=== PATIENT | female | born 1985 | race Caucasian/White ===

== ENCOUNTER 2017-05-19 07:59 | Outpatient (CLI) | payer MEDICAID ==
[2017-05-19 13:10] LABS: BASOPHILS # (AUTO) 0.1 10^3/uL (0.0-0.1); BASOPHILS % (AUTO) 0.8 %; EOSINOPHILS # (AUTO) 0.2 10^3/uL (0.0-0.7); EOSINOPHILS % (AUTO) 3.4 %; HCT - HEMATOCRIT 41.4 % (37.0-47.0); HGB - HEMOGLOBIN 13.6 g/dL (12.0-16.0); LYMPHOCYTES % (AUTO) 43.2 %; MEAN CORPUSCULAR HEMOGLOBIN 29.6 pg (27.0-31.0); MEAN CORPUSCULAR HGB CONC 32.9 g/dL (32.0-36.0); MEAN CORPUSCULAR VOLUME 89.9 fL (81.0-99.0); MEAN PLATELET VOLUME 8.1 fL (7.9-10.8); MONOCYTES # (AUTO) 0.6 10^3/uL (0.0-1.0); MONOCYTES % (AUTO) 8.9 %; NEUTROPHILS % (AUTO) 43.7 %; NUCLEATED RED BLOOD CELLS AUTO 0.1 /100WBC; RED BLOOD COUNT 4.61 10^6/uL (4.20-5.40); RED CELL DISTRIBUTION WIDTH 12.4 % (12.0-15.0); UNCORRECTED WHITE BLOOD COUNT 6.9 x10^3/uL; WHITE BLOOD COUNT 6.9 x10^3/uL (4.8-10.8)
[2017-05-19 13:29] LABS: HEMOGLOBIN A1C 0.45 g/dL
[2017-05-19 13:42] LABS: ALBUMIN/GLOBULIN RATIO 1.3 (1.0-2.2); BILIRUBIN,TOTAL 0.3 mg/dL (0.2-1.0); BUN - BLOOD UREA NITROGEN 15 mg/dL (6-20); CALCIUM 9.1 mg/dL (8.5-10.3); CARBON DIOXIDE - CO2 24 mmol/L (21-32); CHLORIDE 109 mmol/L (101-111); CHOL/HDL RATIO 5.5 (<4.4); CHOLESTEROL 224 mg/dL; CREATININE 0.9 mg/dL (0.4-1.0); GFR - MDRD 74 (>89); GLUCOSE 74 mg/dL (70-100); HDL CHOLESTEROL 41 mg/dL; LDL/HDL RATIO 3.3 (<4.4); POTASSIUM 3.5 mmol/L (3.5-5.0); SODIUM 139 mmol/L (135-145); TOTAL PROTEIN 6.7 g/dL (6.7-8.2); TRIGLYCERIDES 237 mg/dL; VLDL CHOLESTEROL 47 mg/dL
== END 2017-05-19 08:00 | disposition home or self-care (01) ==
LOC: LAB.WCP 07:59
PROVIDERS: ATTEND Family Medicine
DX: Z00.00 Encounter for general adult medical examination without abnormal findings (principal)
CPT/HCPCS: 36415; 80053; 80061; 83036; 84443; 85025

== ENCOUNTER 2017-05-20 10:49 | Emergency (ER) | payer MEDICAID ==
[2017-05-20 10:56] VITALS: BP 120/73
[2017-05-20] MEDS ORDERED: IBUPROFEN 800 MG TABLET PO STA (11:16)
--- NOTE | 2017-05-20 11:17 | ED Physician Documentation ---
PD HPI LOWER EXT INJURY - Stated complaint Stated Complaint: RT KNEE PX - Chief complaint Chief Complaint: Ext Problem - History obtained from History obtained from: Patient - History of Present Illness PD HPI LOW EXT INJURY LOCATION: Right, Knee Type of injury: Twist Where injury occurred: Home Timing - onset: Last night Timing - details: Still present Worsened by: Moving, Palpating, Other (weightbearing) - Additional information Additional information: The patient is a 32-year-old female who presents with pain in her right knee. 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 Review of Systems Constitutional: denies: Fever Nose: denies: Congestion Respiratory: denies: Dyspnea GI: denies: Nausea, Vomiting Skin: denies: Rash Musculoskeletal: reports: Joint pain (right knee). denies: Back pain Neurologic: denies: Focal weakness, Numbness, Headache PD PAST MEDICAL HISTORY - Past Medical History Cardiovascular: None Respiratory: None Neuro: None, Other Endocrine/Autoimmune: None : Chronic bladder infection Musculoskeletal: Fibromyalgia, Chronic back pain, Other (Right PCL rupture) - Past Surgical History Past Surgical History: Yes HEENT: Tonsil/Adenoidectomy - Present Medications Home Medications: Ambulatory Orders Medication Instructions Recorded Confirmed Cyclobenzaprine [Flexeril] 20 mg PO HS 06/07/13 10/28/15 Gabapentin 600 mg PO TID 06/07/13 10/28/15 Ropinirole HCl [Requip] 1 tab PO QPM 12/31/14 10/28/15 traMADol [Ultram] 1 tab QID PRN 12/31/14 10/28/15 Hydrocodone/Acetaminophen 1 - 2 each PO Q6H PRN #20 tablet 10/28/15 [Hydrocodon-Acetaminophen 5-325] diazePAM [Valium] 5 - 10 mg PO TID PRN #15 tablet 10/28/15 HYDROcod/ACETAM 5/325 [[place] 5/325] 1 - 2 ea PO Q6H PRN #15 tablet 05/20/17 - Allergies Allergies/Adverse Reactions: Allergies Allergy/AdvReac Type Severity Reaction Status Date / Time neomycin AdvReac Unknown Rash Verified 05/20/17 10:56 Penicillins AdvReac Unknown Rash Verified 05/20/17 10:56 - Social History Does the pt smoke?: No Smoking Status: Never smoker Does the pt drink ETOH?: Yes Does the pt have substance abuse?: No - Immunizations Immunizations are current?: Yes - POLST Patient has POLST: No PD ED PE NORMAL - Vitals Vital signs reviewed: Yes (normal) - General General: Alert and oriented X 3, Other (overweight) - HEENT HEENT: Atraumatic - Neck Neck: No bony TTP - Respiratory Respiratory: No respiratory distress - Back Back: No spinal TTP - Derm Derm: No rash - Extremities Extremities: No edema, No calf tenderness / cord, Other (There is tenderness to palpation over the lateral and popliteal aspect of the right knee. There is no tenderness along the medial joint line, and no instability detected. She is able to fully extend the knee and can flex it to 90, although flexion exacerbates her discomfort. There is a small superficial abrasion noted over the and anterolateral aspect of the tibial plateau region of the knee. Distal neurovascular is intact.) - Neuro Neuro: Alert and oriented X 3, No motor deficit, No sensory deficit Results - Vitals Vitals: Vital Signs - 24 hr 05/20/17 10:53 Temperature 36.8 C Heart Rate 73 Respiratory 18 Rate Blood Pressure 120/73 O2 Saturation 100 Oxygen O2 Source Room air - Rads (name of study) right knee Radiology: Prelim report reviewed, EMP read contemporaneously, See rad report ( No acute osseous abnormality. Mild degenerative change.) Procedures - Splint (location) Lower extremity right Splint applied by: Tech Type of splint: Other (knee immobilizer) Other: Patient tolerated well, No complications, Neurovascular intact PD MEDICAL DECISION MAKING - ED course Complexity details: reviewed results, re-evaluated patient, considered differential, d/w patient, d/w family ED course: The patient's presentation is most consistent with strain of the right knee. X- ray reveals no acute bony abnormality. Treatment in the emergency department included administration of ibuprofen 800 mg orally, and application of knee immobilizer. She is being discharged with prescription for Vicodin, 15 tablets. I discussed with her and her the results of the x-ray, symptomatic treatment and outpatient follow-up, as well as potentially worrisome signs or symptoms that should prompt reevaluation in the emergency department. Departure - Departure Disposition: 01 Home, Self Care Clinical Impression: Knee strain Qualifiers: Encounter type: initial encounter Laterality: right Qualified Code(s): S86.911A - Strain of unspecified muscle(s) and tendon(s) at lower leg level, right leg, initial encounter Condition: Stable Instructions: ED Sprain Knee Follow-Up: Flakita Jiang MD [Provider Admit Priv/Credential] - Prescriptions: HYDROcod/ACETAM 5/325 [[place] 5/325] 1 - 2 ea PO Q6H PRN #15 tablet PRN Reason: Pain Comments: Apply ice pack to her right knee intermittently for the next 3 or 4 days. You can use ibuprofen, up to 800 mg 3 times daily for its anti-inflammatory effect. You can use Vicodin as prescribed if needed for pain. Use the knee immobilizer if it provides comfort. Follow-up with your orthopedic doctor within 2 weeks. Call to schedule appointment. Let pain be your guide to activity level. Return to the emergency department if you develop increasing pain or swelling of your knee, or otherwise worsening symptoms. Discharge Date/Time: 05/20/17 13:45
[2017-05-20] MEDS ORDERED: IBUPROFEN 800 MG TABLET PO ONE (11:24)
--- NOTE | 2017-05-20 13:06 | XRAY Preliminary Report ---
Exam: XR KNEE 4 VIEW RT IMPRESSION: No acute osseous abnormality. Mild degenerative change. [facility] SITE ID: [id number]
--- NOTE | 2017-05-20 13:08 | XRAY Report ---
EXAM: RIGHT KNEE RADIOGRAPHY EXAM DATE: 05/20/2017 11:48 AM. CLINICAL HISTORY: Right knee injury. Pain. COMPARISON: 06/13/2012. TECHNIQUE: 5 views. FINDINGS: Bones: Normal. No fractures or bone lesions. Joints: Mild tricompartmental osteophytes. No subluxation or effusion. Soft Tissues: No focal abnormality. IMPRESSION: No acute osseous abnormality. Mild degenerative change. [facility] Referring Provider Line: [phone] SITE ID: [id number]
== END 2017-05-20 13:45 | disposition home or self-care (01) ==
LOC: ED 10:49
DX: S86.811A Strain of other muscle(s) and tendon(s) at lower leg level, right leg, initial encounter (principal); X50.0XXA Overexertion from strenuous movement or load, initial encounter; Y92.018 Other place in single-family (private) house as the place of occurrence of the external cause; M79.7 Fibromyalgia
CPT/HCPCS: 73564; 99283; A9270

== ENCOUNTER 2017-06-09 08:58 | Outpatient (CLI) | payer MEDICAID ==
--- NOTE | 2017-06-09 14:13 | MRI Report ---
EXAM: RIGHT KNEE MRI WITHOUT CONTRAST EXAM DATE: 06/09/2017 10:35 AM. CLINICAL HISTORY: Enrique coyle. Fell 7 weeks ago with posterior knee pain. COMPARISON: Radiographs 05/20/2017. TECHNIQUE: Multiplanar, multisequence T1-weighted and fluid-sensitive sequences of the knee without c ontrast. Other: None. FINDINGS: Cruciate Ligaments: The anterior and posterior cruciate ligaments appear intact. Medial Meniscus: Intact. No tear is identified. Lateral Meniscus: Intact. No tear is identified. Collateral Ligaments: The medial and fibular collateral ligaments appear intact. Bones and Articular Surfaces: Small focal area of cartilage thinning and fissuring at the weightbeari ng medial femoral condyle with prominent associated focal marrow edema. Mild cartilage thinning and f issuring over the lower aspect of the lateral facet of the patella with small foci of subchondral timo ma. Extensor Mechanism: The patellar tendon and quadriceps insertion appear intact. IMPRESSION: 1. Mild medial and patellofemoral compartment osteoarthritis. 2. Focal area of cartilage thinning and fissuring with prominent subchondral marrow edema at the weig htbearing medial femoral condyle. [facility] MUSCULOSKELETAL RADIOLOGY SECTION Referring Provider Line: [phone] SITE ID: [id number]
== END 2017-06-09 08:59 | disposition home or self-care (01) ==
LOC: DI 08:58
PROVIDERS: ATTEND Orthopaedic Surgery
DX: M23.91 Unspecified internal derangement of right knee (principal); M17.11 Unilateral primary osteoarthritis, right knee

== ENCOUNTER 2017-07-06 14:12 | Outpatient (CLI) | payer MEDICAID ==
--- NOTE | 2017-07-07 09:26 | Mammography Report ---
DIGITAL DIAGNOSTIC BILATERAL MAMMOGRAM: 07/06/2017 CLINICAL INDICATION: Focal tenderness left inner breast. TECHNIQUE: Bilateral CC, MLO, laterally exaggerated CC views, left true lateral view. FINDINGS: Markers were placed at the site of maximal tenderness identified by the patient in the lef t breast. This is the patient's baseline examination. The breasts demonstrate fatty replacement bilaterally. A few punctate and coarse, typically benign c alcifications are present. No suspicious masses, clustered microcalcifications, or regions of gaby ectural distortion are identified. Specifically, no mammographic abnormality is appreciated at the s ite of tenderness indicated by the markers in the left breast. IMPRESSION: BENIGN FINDINGS. RECOMMENDATION: Routine annual screening, to commence at age 40, unless otherwise clinically indicat ed. BI-RADS category 2, benign findings. STANDARD QUALIFYING STATEMENTS 1. This examination was reviewed with the aid of Computer-Aided Detection (CAD). 2. A negative or benign imaging report should not delay biopsy if clinically suspicious findings are present. Consider surgical consultation if warranted. More than 5% of cancers are not identified by i maging. 3. Dense breasts may obscure an underlying neoplasm. JOB #: [id number] EXT JOB #:
== END 2017-07-06 14:13 | disposition home or self-care (01) ==
LOC: DI 14:12
PROVIDERS: ATTEND Family Medicine
DX: N64.4 Mastodynia (principal); N63 Unspecified lump in breast
CPT/HCPCS: 77066

== ENCOUNTER 2017-09-19 15:26 | Emergency (ER) | payer MEDICAID ==
[2017-09-19] MEDS ORDERED: SODIUM CHLORIDE 0.9% 1,000 ML IV ONE (16:19)
[2017-09-19] MEDS ORDERED: MORPHINE 10 MG/ML VIAL IVP STA (16:19)
[2017-09-19] MEDS ORDERED: ONDANSETRON 4 MG/2 ML VIAL IVP STA (16:19)
--- NOTE | 2017-09-19 16:21 | ED Physician Documentation ---
History of Present Illness - Stated complaint Stated Complaint: STIFF NECK,HEADACHE,COUGH - Chief complaint Chief Complaint: General - History obtained from History obtained from: Patient - History of Present Illness Timing: Other (32-year-old woman with chronic well-controlled migraines and fibromyalgia presents with 4 days of headache, vomiting, neck stiffness, subjective fevers, body aches, cough. Seen by her physician today and sent here for potential spinal tap given the concern for meningitis. Had a strep test in the office that was negative.) Review of Systems Ten Systems: 10 systems reviewed and negative Constitutional: reports: Fever, Chills, Myalgias, Fatigue Nose: reports: Rhinorrhea / runny nose, Congestion Throat: reports: Sore throat Respiratory: reports: Cough GI: reports: Vomiting, Diarrhea. denies: Abdominal Pain PD PAST MEDICAL HISTORY - Past Medical History Cardiovascular: None Respiratory: None Neuro: None, Other Endocrine/Autoimmune: None : Chronic bladder infection Musculoskeletal: Fibromyalgia, Chronic back pain, Other - Past Surgical History Past Surgical History: Yes HEENT: Tonsil/Adenoidectomy - Present Medications Home Medications: Ambulatory Orders Medication Instructions Recorded Confirmed Cyclobenzaprine [Flexeril] 20 mg PO HS 06/07/13 09/19/17 Gabapentin 600 mg PO TID 06/07/13 09/19/17 Ropinirole HCl [Requip] 1 tab PO QPM 12/31/14 09/19/17 traMADol [Ultram] 1 tab QID PRN 12/31/14 09/19/17 Atorvastatin Calcium 40 mg PO DAILY 09/19/17 09/19/17 HYDROcod/ACETAM 5/325 [[place] 5/325] 1 - 2 ea PO Q6H PRN #15 tablet 09/19/17 Nadolol 20 mg PO DAILY 09/19/17 09/19/17 Ondansetron HCl [Zofran] 4 mg PO Q6H PRN #10 tablet 09/19/17 Topiramate [Topamax] 10 mg PO DAILY 09/19/17 09/19/17 guaiFENesin/CODEINE [Robitussin AC] 5 - 10 ml PO Q6H PRN #120 ml 09/19/17 - Allergies Allergies/Adverse Reactions: Allergies Allergy/AdvReac Type Severity Reaction Status Date / Time neomycin AdvReac Unknown Rash Verified 05/20/17 10:56 Penicillins AdvReac Unknown Rash Verified 05/20/17 10:56 - Social History Does the pt smoke?: No Smoking Status: Never smoker Does the pt drink ETOH?: Yes Does the pt have substance abuse?: No - Immunizations Immunizations are current?: Yes - POLST Patient has POLST: No PD ED PE NORMAL - Vitals Vital signs reviewed: Yes - General General: Alert and oriented X 3, No acute distress - HEENT HEENT: PERRL, EOMI, Pharynx benign - Neck Neck: Other (Neck is stiff, nontender, no adenopathy) - Cardiac Cardiac: RRR, No murmur - Respiratory Respiratory: No respiratory distress, Clear bilaterally - Abdomen Abdomen: Soft, Non tender, Non distended - Back Back: No CVA TTP, No spinal TTP - Derm Derm: Normal color, Warm and dry, No rash - Neuro Neuro: Alert and oriented X 3, Normal speech - Psych Psych: Normal mood, Normal affect Results - Vitals Vitals: Vital Signs - 24 hr 09/19/17 09/19/17 09/19/17 15:30 16:32 17:54 Temperature 36.9 C 37.0 C 36.8 C Heart Rate 77 96 65 Respiratory 18 16 16 Rate Blood Pressure 138/88 H 128/78 114/64 O2 Saturation 99 98 98 Oxygen O2 Source Room air - Labs Labs: Laboratory Tests 09/19/17 09/19/17 09/19/17 15:20 16:23 16:34 WBC 7.8 RBC 4.76 Hgb 13.8 Hct 42.2 MCV 88.7 MCH 29.0 MCHC 32.7 RDW 12.3 Plt Count 328 MPV 7.2 L Neut # 4.7 Lymph # 2.0 Carver # 0.6 Eos # 0.4 Baso # 0.1 Absolute Nucleated RBC 0.00 Nucleated RBC % 0.1 Sodium Potassium Chloride Carbon Dioxide Anion Gap BUN Creatinine Estimated GFR (MDRD) Glucose Lactic Acid Calcium Total Bilirubin AST ALT Alkaline Phosphatase Total Protein Albumin Globulin Albumin/Globulin Ratio Lipase Urine Color YELLOW Urine Clarity CLEAR Urine pH 6.0 Ur Specific [place] 1.025 Urine Protein NEGATIVE Urine Glucose (UA) NEGATIVE Urine Ketones NEGATIVE Urine Occult Blood NEGATIVE Urine Nitrite NEGATIVE Urine Bilirubin NEGATIVE Urine Urobilinogen 0.2 (NORMAL) Ur Leukocyte Esterase NEGATIVE Ur Microscopic Review NOT INDICATED Urine Culture Comments NOT INDICATED Urine HCG, Qual NEGATIVE CSF Color CSF Clarity Xanthrochromic CSF WBC CSF RBC CSF Cell Count Tube # CSF Glucose CSF Total Protein Influenza A (Rapid) Negative Influenza B (Rapid) Negative Influenza Types A,B Ag - 09/19/17 09/19/17 09/19/17 16:34 16:34 17:35 WBC RBC Hgb Hct MCV MCH MCHC RDW Plt Count MPV Neut # Lymph # [place] # Eos # Baso # Absolute Nucleated RBC Nucleated RBC % Sodium 141 Potassium 3.9 Chloride 106 Carbon Dioxide 26 Anion Gap 9.0 BUN 11 Creatinine 0.9 Estimated GFR (MDRD) 74 L Glucose 97 Lactic Acid 0.8 Calcium 9.4 Total Bilirubin 0.5 AST 18 ALT 24 Alkaline Phosphatase 72 Total Protein 7.3 Albumin 3.6 Globulin 3.7 Albumin/Globulin Ratio 1.0 Lipase 22 Urine Color Urine Clarity Urine pH Ur Specific [place] Urine Protein Urine Glucose (UA) Urine Ketones Urine Occult Blood Urine Nitrite Urine Bilirubin Urine Urobilinogen Ur Leukocyte Esterase Ur Microscopic Review Urine Culture Comments Urine HCG, Qual CSF Color COLORLESS CSF Clarity CLEAR Xanthrochromic ABSENT CSF WBC 5 CSF RBC 0 CSF Cell Count Tube # CSF TUBE# 3 CSF Glucose 52 CSF Total Protein 33 Influenza A (Rapid) Influenza B (Rapid) Influenza Types A,B Ag Procedures - Lumbar Puncture Position: Sitting Location: L3-L4, Midline approach Anesthesia: Local lidocaine CSF: Clear Other: Sterile prep and drape, Patient tolerated well PD MEDICAL DECISION MAKING - ED course ED course: 32-year-old woman was referred from the office for what sounds mostly like a viral syndrome with cough cold sore throat etc. but also has prominent headache and stiff neck. As such a lumbar puncture was done and surprisingly technically easy given her size and negative for same. The remainder of her workup was negative, seems consistent with viral syndrome. Departure - Departure Disposition: 01 Home, Self Care Clinical Impression: Viral syndrome Headache Qualifiers: Headache type: unspecified Headache chronicity pattern: acute headache Intractability: not intractable Qualified Code(s): R51 - Headache Condition: Good Record reviewed to determine appropriate education?: Yes Instructions: ED Viral Syndrome Prescriptions: guaiFENesin/CODEINE [Robitussin AC] 5 - 10 ml PO Q6H PRN #120 ml PRN Reason: Cough HYDROcod/ACETAM 5/325 [[place] 5/325] 1 - 2 ea PO Q6H PRN #15 tablet PRN Reason: Pain Ondansetron HCl [Zofran] 4 mg PO Q6H PRN #10 tablet PRN Reason: Nausea / Vomiting Comments: Call your doctor to arrange a follow-up appointment, make the next available appointment. In the interim, return anytime if worse or if new symptoms develop.
[2017-09-19 16:41] LABS: BASOPHILS # (AUTO) 0.1 10^3/uL (0.0-0.1); BASOPHILS % (AUTO) 0.7 %; EOSINOPHILS # (AUTO) 0.4 10^3/uL (0.0-0.7); EOSINOPHILS % (AUTO) 5.6 %; HCT - HEMATOCRIT 42.2 % (37.0-47.0); HGB - HEMOGLOBIN 13.8 g/dL (12.0-16.0); LYMPHOCYTES % (AUTO) 25.2 %; MEAN CORPUSCULAR HGB CONC 32.7 g/dL (32.0-36.0); MEAN CORPUSCULAR VOLUME 88.7 fL (81.0-99.0); MEAN PLATELET VOLUME 7.2 fL (7.9-10.8); MONOCYTES # (AUTO) 0.6 10^3/uL (0.0-1.0); MONOCYTES % (AUTO) 7.9 %; NEUTROPHILS # (AUTO) 4.7 10^3/uL (1.5-6.6); NEUTROPHILS % (AUTO) 60.6 %; NUCLEATED RED BLOOD CELLS AUTO 0.1 /100WBC; RED BLOOD COUNT 4.76 10^6/uL (4.20-5.40); RED CELL DISTRIBUTION WIDTH 12.3 % (12.0-15.0); UNCORRECTED WHITE BLOOD COUNT 7.8 x10^3/uL; WHITE BLOOD COUNT 7.8 x10^3/uL (4.8-10.8)
[2017-09-19 16:53] LABS: BILIRUBIN,TOTAL 0.5 mg/dL (0.2-1.0); CALCIUM 9.4 mg/dL (8.5-10.3); CREATININE 0.9 mg/dL (0.4-1.0); POTASSIUM 3.9 mmol/L (3.5-5.0); TOTAL PROTEIN 7.3 g/dL (6.7-8.2)
[2017-09-19] MEDS ORDERED: ONDANSETRON 4 MG/2 ML VIAL ONE (16:58)
[2017-09-19] MEDS ORDERED: MORPHINE 10 MG/ML VIAL ONE (16:58)
[2017-09-19] MEDS ORDERED: LIDOCAINE 1% 2 ML VIAL ONE (17:18)
[2017-09-19 17:39] LABS: BILIRUBIN,URINE NEGATIVE (NEGATIVE)
[2017-09-19 17:54] VITALS: BP 114/64
[2017-09-19 18:16] LABS: HCG UR QUAL NEGATIVE; UA CHARGE (STRIP ONLY) YES; UR CULTURE IF IND NOT INDICATED
[2017-09-19 18:19] LABS: CLARITY,CSF CLEAR (CLEAR); COLOR,CSF COLORLESS (COLORLESS); CSF XANTHOCHROMIA ABSENT (ABSENT); WHITE BLOOD CELL,CSF 5 /mm^3 (0-5)
[2017-09-19 18:20] LABS: CSF - GLUCOSE 52 mg/dL (45-70)
[2017-09-19 19:17] LABS: LYMPHOCYTES,CSF 40 % (40-80)
--- NOTE | 2017-09-20 18:26 | ED Physician Documentation ---
ED Addendum - Addendum Addendum: 09/20/17 18:23 Took call from lab 1 cx bottle prelim pos for GPC in clusters. Presume contaminant but call to both numbers in chart. She quickly called back. She will come back.
== END 2017-09-19 18:34 | disposition home or self-care (01) ==
LOC: ED 15:26
DX: R51 Headache (principal); M43.6 Torticollis; R05 Cough; J02.9 Acute pharyngitis, unspecified
CPT/HCPCS: 36415; 62270; 80053; 81001; 81003; 81025; 82945; 83605; 83690; 84157; 85025; 87040; 87070; 87086; 87205; 87275; 87276; 89051; 96361; 96374; 96375; 99283

== ENCOUNTER 2017-09-20 19:06 | Observation (INO) | payer MEDICAID ==
[2017-09-20] MEDS ORDERED: VANCOMYCIN INJ 2 GM in SODIUM CHLORIDE 0.9% 500 ML IV STA (19:08)
--- NOTE | 2017-09-20 19:09 | ED Physician Documentation ---
History of Present Illness - Stated complaint Stated Complaint: + BLOOD CULTURE - History obtained from History obtained from: Patient - History of Present Illness Timing: Other (She was seen yesterday for headache, viral symptoms. Meningitis workup was done and negative. She was called back today because of a positive blood culture for gram-positive cocci in clusters. She still has a significant headache and is losing her voice, but no other new symptoms.) Review of Systems Ten Systems: 10 systems reviewed and negative Constitutional: reports: Fever, Chills Nose: reports: Rhinorrhea / runny nose Throat: reports: Sore throat Cardiac: reports: Reviewed and negative Respiratory: reports: Reviewed and negative PD PAST MEDICAL HISTORY - Past Medical History Cardiovascular: None Respiratory: None Neuro: None, Other Endocrine/Autoimmune: None : Chronic bladder infection Musculoskeletal: Fibromyalgia, Chronic back pain, Other - Past Surgical History Past Surgical History: Yes HEENT: Tonsil/Adenoidectomy - Present Medications Home Medications: Ambulatory Orders Medication Instructions Recorded Confirmed Cyclobenzaprine [Flexeril] 20 mg PO HS 06/07/13 09/20/17 Gabapentin 600 mg PO TID 06/07/13 09/20/17 Ropinirole HCl [Requip] 1 tab PO QPM 12/31/14 09/20/17 traMADol [Ultram] 1 tab QID PRN 12/31/14 09/20/17 Atorvastatin Calcium 40 mg PO DAILY 09/19/17 09/20/17 HYDROcod/ACETAM 5/325 [[place] 5/325] 1 - 2 ea PO Q6H PRN #15 tablet 09/19/17 Nadolol 20 mg PO DAILY 09/19/17 09/20/17 Ondansetron HCl [Zofran] 4 mg PO Q6H PRN #10 tablet 09/19/17 09/20/17 Topiramate [Topamax] 10 mg PO DAILY 09/19/17 09/20/17 guaiFENesin/CODEINE [Robitussin AC] 5 - 10 ml PO Q6H PRN #120 ml 09/19/17 - Allergies Allergies/Adverse Reactions: Allergies Allergy/AdvReac Type Severity Reaction Status Date / Time neomycin AdvReac Unknown Rash Verified 09/20/17 19:14 Penicillins AdvReac Unknown Rash Verified 11/29/17 19:14 - Social History Does the pt smoke?: No Smoking Status: Never smoker Does the pt drink ETOH?: Yes Does the pt have substance abuse?: No - Family History Family history: reports: Non contributory - Immunizations Immunizations are current?: Yes - POLST Patient has POLST: No PD ED PE NORMAL - Vitals Vital signs reviewed: Yes - General General: Alert and oriented X 3, No acute distress - HEENT HEENT: Other (hoarse voice) - Neck Neck: Supple, no meningeal sign, No bony TTP - Cardiac Cardiac: RRR, No murmur - Respiratory Respiratory: No respiratory distress, Clear bilaterally - Abdomen Abdomen: Soft, Non tender - Derm Derm: No rash - Neuro Neuro: Alert and oriented X 3, Normal speech - Psych Psych: Normal mood, Normal affect Results - Vitals Vitals: Vital Signs - 24 hr 09/20/17 19:12 Temperature 36.7 C Heart Rate 72 Respiratory 22 Rate Blood Pressure 128/81 H O2 Saturation 99 Oxygen O2 Source Room air PD MEDICAL DECISION MAKING - ED course ED course: 32-year-old woman returns as directed for likely false positive blood culture but cannot rule out true positive gram-positive bacteremia at this point. Spoke with Dr. Castro for admission at 7:30 PM. I had ordered vancomycin, but Dr. Castro would like to follow her clinical course without antibiotics at this juncture. Given the normal vital signs and lack of toxicity this is reasonable. Departure - Departure Disposition: 66 [facility] DC/Xfer Clinical Impression: Gram positive sepsis Condition: Stable
[2017-09-20] MEDS ORDERED: VANCOMYCIN 1 GM VIAL ONE (19:25)
[2017-09-20] MEDS ORDERED: MORPHINE 10 MG/ML VIAL IVP STA (19:40)
[2017-09-20 19:57] LABS: BASOPHILS % (AUTO) 0.5 %; EOSINOPHILS # (AUTO) 0.4 10^3/uL (0.0-0.7); EOSINOPHILS % (AUTO) 4.8 %; HGB - HEMOGLOBIN 13.4 g/dL (12.0-16.0); LYMPHOCYTES # (AUTO) 2.8 10^3/uL (1.5-3.5); MEAN CORPUSCULAR HGB CONC 34.3 g/dL (32.0-36.0); MEAN CORPUSCULAR VOLUME 87.6 fL (81.0-99.0); MEAN PLATELET VOLUME 7.3 fL (7.9-10.8); MONOCYTES # (AUTO) 0.7 10^3/uL (0.0-1.0); MONOCYTES % (AUTO) 8.4 %; NEUTROPHILS # (AUTO) 4.5 10^3/uL (1.5-6.6); NEUTROPHILS % (AUTO) 53.3 %; RED BLOOD COUNT 4.45 10^6/uL (4.20-5.40); UNCORRECTED WHITE BLOOD COUNT 8.5 x10^3/uL; WHITE BLOOD COUNT 8.5 x10^3/uL (4.8-10.8)
[2017-09-20] MEDS ORDERED: MORPHINE 10 MG/ML VIAL ONE (20:03)
[2017-09-20 20:08] LABS: CALCIUM 8.7 mg/dL (8.5-10.3); CREATININE 0.8 mg/dL (0.4-1.0); POTASSIUM 3.6 mmol/L (3.5-5.0)
[2017-09-20] MEDS ORDERED: HYDROcod/ACETAM 5/325 MG TABLET PO PRN (20:24)
[2017-09-20] MEDS ORDERED: SODIUM CHLORIDE FLUSH 0.9% 10 ML SYRINGE IVP PRN (20:24)
[2017-09-20] MEDS ORDERED: ZOLPIDEM 5 MG TABLET PO PRN (20:24)
[2017-09-20] MEDS ORDERED: ONDANSETRON 4 MG/2 ML VIAL IVP PRN (20:24)
[2017-09-20] MEDS ORDERED: traMADol 50 MG TABLET PO PRN (20:27)
[2017-09-20] MEDS ORDERED: IPRATROPIUM/ALBUTEROL 3 ML NEB INH PRN (20:30)
[2017-09-20] MEDS ORDERED: BENZOCAINE/MENTHOL LOZENGE MM PRN (20:31)
[2017-09-20] MEDS: GABAPENTIN 300 MG CAPSULE PO SCH (21:34)
[2017-09-20] MEDS: CYCLOBENZAPRINE 10 MG TABLET PO SCH (21:35)
[2017-09-20] MEDS: SODIUM CHLORIDE FLUSH 0.9% 10 ML SYRINGE IVP SCH ×2 (21:35→22:10)
[2017-09-20] MEDS: KETOROLAC 15 MG/ML VIAL IVP PRN (22:10)
[2017-09-20] MEDS: guaiFENesin 600 MG TABLET PO SCH (22:11)
--- NOTE | 2017-09-20 22:37 | HISTORY & PHYSICAL EXAMINATION ---
DATE OF ADMISSION: 09/20/2017 CHIEF COMPLAINT: Positive blood culture. HISTORY OF PRESENT ILLNESS: The patient is a 32-year-old white female with past medical history of obesity, fibromyalgia, depression, migraine headaches and frequent urinary tract infections. She was seen as outpatient for a 3-4 days' history of headache, cough, and neck stiffness. She did have a throat culture which was negative for strep infection. Her primary care physician was concerned about possible meningitis due to the neck stiffness. Therefore, the patient was sent to the ER on September 19, 2017. At that time, she was evaluated by the ER physician, Dr. Jameson. The patient underwent lumbar puncture which was negative and had no more than 5 white blood cells. Glucose was 50. Protein was 30, which is consistent with a negative LP. Urinalysis was negative. The patient had stable vital signs. No significant laboratory abnormality. Blood cultures were drawn, and the patient was discharged from the ER in stable condition. Subsequently, on September 20, 2017, the ER was notified by the laboratory that 1 out of 2 blood cultures grew gram-positive cocci in clusters. Therefore, the patient was called back to the ER for repeat evaluation. Upon presentation to the ER, the patient was hemodynamically stable. Her maximum temperature was 37.1. Her heart rate was between 60 and 70. Blood pressure was 128/81. Respiration rate was 22. Oxygen saturation 99% on room air. Repeat laboratories showed a normal white blood cell count, normal lactic acid, unremarkable chemistry and hematology panel. When I interviewed the patient, she complained of the same symptoms as she had before, which included nausea, intractable cough without much sputum production, and she reported that her emesis is related to coughing so hard that subsequently she needs to throw up. She also reported ongoing headache but did not complain of stiff neck this time. Her symptoms started about 5 days ago and had been somewhat progressively worse. She had not been treated with antibiotics recently. She denied recent hospitalization. She does not have any recent history of invasive procedure. She denied dental problem or gum disease. She did not report any skin rash, muscle tenderness or joint swelling. PAST MEDICAL HISTORY 1. Obesity/dyslipidemia. 2. Fibromyalgia. 3. Depression. 4. Migraine headaches. 5. Frequent urinary tract infections. 6. Chronic back pain. OUTPATIENT MEDICATIONS: Included 1. Tramadol. 2. Robitussin. 3. Topamax. 4. Requip. 5. Zofran. 6. Nadolol. 7. [place]. 8. Gabapentin. 9. Flexeril. 10. Lipitor. ALLERGIES 1. NEOMYCIN. 2. PENICILLIN. SOCIAL HISTORY: The patient does not smoke. FAMILY HISTORY: Positive for coronary artery disease in the mother. REVIEW OF SYSTEMS: Please see pertinent positive and pertinent negatives listed above at history of present illness. The patient did not report additional complaint on the 12-point review. PRIMARY CARE PHYSICIAN: Amina Puentes MD. PHYSICAL EXAMINATION VITAL SIGNS: Please see listed above at history of present illness. GENERAL: The patient is a well-developed, obese female who is not in distress. CARDIOVASCULAR: S1, S2, regular rate and rhythm. No pathologic murmur. MUSCULOSKELETAL: Obesity, no muscle tenderness or joint swelling. SKIN: No rash. No jaundice. RESPIRATORY: Clear to auscultation without wheezes or crackles. No increased work of breathing. ORAL CAVITY: Unremarkable, dry mucous membranes. No ulcer, no thrush. NEUROLOGIC: Alert, oriented, nonfocal. PSYCHIATRIC: Cooperative. LYMPH: No lymphedema. ASSESSMENT AND PLAN/ACTIVE ISSUES: The patient is a 32-year-old white female. She presents with symptoms consistent with viral syndrome, including cough, headache, nausea and posttussive emesis. She is getting admitted under observation status due to a positive blood culture. Reviewing the patient's laboratories, her white blood cell count is normal and other laboratories are unremarkable, as well. She has stable vital signs, and she is afebrile. Most likely, the positive blood culture is in fact a contaminant. I will observe the patient overnight and closely monitor her vital signs. I decided not to start antibiotics, as antibiotics could mask the clinical symptoms and the clinical course. If this will be the only positive blood culture, then the clinical course will help us decide whether in fact this is a contaminant. Beside monitoring, a new set of blood culture were obtained. While the patient is in the hospital, we will control her symptoms, will use antitussives, and supportive care. I reconciled outpatient medications and will continue unchanged. Deep venous thrombosis prophylaxis. Further plan will depend on the clinical course. Time spent in the care of this patient was 50 minutes. JOB #: [id number] EXT JOB #:[id number] [facility]
[2017-09-21] MEDS: guaiFENesin/CODEINE 5 ML UDC PO PRN ×3 (00:16→20:40)
[2017-09-21] MEDS: GABAPENTIN 300 MG CAPSULE PO SCH ×3 (05:30→21:52)
[2017-09-21] MEDS: KETOROLAC 15 MG/ML VIAL IVP PRN ×2 (05:51→16:09)
[2017-09-21] MEDS: guaiFENesin 600 MG TABLET PO SCH (09:24)
[2017-09-21] MEDS: PANTOPRAZOLE 40 MG TABLET PO SCH (09:24)
[2017-09-21] MEDS: TOPIRAMATE 100 MG TABLET PO SCH (09:25)
[2017-09-21] MEDS: NADOLOL 20 MG TABLET PO SCH (09:25)
[2017-09-21] MEDS: SODIUM CHLORIDE 0.9% 1,000 ML IV SCH ×2 (09:25→18:59)
[2017-09-21] MEDS: POLYETHYLENE GLYCOL 3350 17 GM PACKET PO SCH (09:25)
[2017-09-21] MEDS: ATORVASTATIN 40 MG TABLET PO SCH (09:25)
[2017-09-21] MEDS: ENOXAPARIN 40 MG/0.4 ML SYRINGE SUBQ SCH (09:25)
--- NOTE | 2017-09-21 12:24 | XRAY Report ---
FRONTAL CHEST: 09/21/2017 CLINICAL INDICATION: Cough, shortness of breath. COMPARISON: 08/01/2017 FINDINGS: Frontal view of the chest demonstrates a normal cardiac silhouette. The lungs remain cisco r. No effusion or pneumothorax is present. IMPRESSION: NORMAL CHEST, UNCHANGED. JOB #: [id number] EXT JOB #:[id number]
[2017-09-21] MEDS: SODIUM CHLORIDE FLUSH 0.9% 10 ML SYRINGE IVP SCH ×2 (13:23→21:56)
--- NOTE | 2017-09-21 15:58 | PROVIDER PROGRESS NOTE ---
Subjective - Prog Note Date Prog Note Date: 09/21/17 - Subjective Pt reports feeling: No change Subjective: pt report she still has cough, some headache, and feel sickness. Denies chest pain, shortness of breathing, fever, chill. Current Medications - Current Medications Current Medications: Active Medications Acetaminophen/Hydrocodone Bitart ([place] 5/325) 1 tab PO Q4HR PRN PRN Reason: Pain 5 to 7 Albuterol/Ipratropium (Duoneb) 3 ml INH Q4HR PRN PRN Reason: Wheezing Atorvastatin Calcium (Lipitor) 40 mg PO DAILY [facility] Last Admin: 09/21/17 09:25 Dose: 40 mg Cyclobenzaprine HCl (Flexeril) 20 mg PO HS [facility] Last Admin: 09/20/17 21:35 Dose: 20 mg Enoxaparin Sodium (Lovenox) 40 mg SUBQ DAILY [facility] Last Admin: 09/21/17 09:25 Dose: 40 mg Gabapentin (Neurontin) 600 mg PO TID [facility] Last Admin: 09/21/17 13:32 Dose: 600 mg Guaifenesin (Mucinex) 600 mg PO DAILY [facility] Last Admin: 09/21/17 09:24 Dose: 600 mg Guaifenesin/Codeine Phosphate (Robitussin Ac) 5 - 10 ml PO Q6H PRN PRN Reason: Cough Last Admin: 09/21/17 11:33 Dose: 5 ml Sodium Chloride (Normal Saline 0.9%) 1,000 mls @ 100 mls/hr IV .Q10H [facility] Last Admin: 09/21/17 09:25 Dose: 100 mls/hr Ketorolac Tromethamine (Toradol Inj) 15 mg IVP Q6HR PRN PRN Reason: HEADACHE Stop: 09/25/17 20:59 Last Admin: 09/21/17 05:51 Dose: 15 mg Nadolol (Corgard) 20 mg PO DAILY [facility] Last Admin: 09/21/17 09:25 Dose: 20 mg Ondansetron HCl (Zofran Inj) 4 mg IVP Q6HR PRN PRN Reason: Nausea / Vomiting Pantoprazole Sodium (Protonix) 40 mg PO QDAC [facility] Last Admin: 09/21/17 09:24 Dose: 40 mg Polyethylene Glycol (Miralax) 17 gm PO DAILY [facility] Last Admin: 09/21/17 09:25 Dose: 17 gm Ropinirole HCl (Requip) 0.5 mg PO QPM [facility] Sodium Chloride (Normal Saline Flush 0.9%) 10 ml IVP PRN PRN PRN Reason: NEEDED PER PROVIDER ORDERS Last Admin: 09/21/17 05:55 Dose: 10 ml Sodium Chloride (Normal Saline Flush 0.9%) 10 ml IVP Q8HR [facility] Last Admin: 09/21/17 13:23 Dose: Not Given Throat Lozenges (Cepacol) 1 lozenge MM Q4HR PRN PRN Reason: Cold Symptons Topiramate (Topamax) 100 mg PO DAILY [facility] Last Admin: 09/21/17 09:25 Dose: 100 mg Tramadol HCl (Ultram) 50 mg PO QID PRN PRN Reason: Analgesia Zolpidem Tartrate (Ambien) 5 mg PO QPM PRN PRN Reason: Insomnia Cyclobenzaprine [Flexeril] 10 mg PO Q8H PRN 06/07/13 Gabapentin 600 mg PO TID 06/07/13 Ropinirole HCl [Requip] 0.5 mg PO QPM 12/31/14 traMADol [Ultram] 50 mg PO Q6H PRN 12/31/14 Atorvastatin Calcium 40 mg PO DAILY 09/19/17 Nadolol 20 mg PO QPM 09/19/17 Topiramate [Topamax] 100 mg PO DAILY 09/19/17 Objective - Vital Signs/Intake & Output Reviewed Vital Signs: Yes Vital Signs: Vital Signs x48h Temp Pulse Pulse Resp BP Pulse Ox 09/21/17 15:50 37 C 68 17 125/69 98 09/21/17 14:15 78 16 09/21/17 13:00 36.3 C L 57 L 16 91/48 L 94 09/21/17 08:03 36.5 C 91 14 120/61 93 Intake & Output: Intake & Output 09/18/17 09/19/17 09/20/17 09/21/17 23:59 23:59 23:59 23:59 Intake Total 720 Balance 720 - Objective General Appearance: positive: No acute distress, Alert. negative: Lethargic Eyes Bilateral: positive: Normal inspection, PERRL, No lid inflammation, Conjunctivae nml ENT: positive: ENT inspection nml, Pharynx nml, No signs of dehydration. negative: Purulent nasal drainage, Pharyngeal erythema, Oral lesions, Dry mucous membranes Neck: positive: Nml inspection, Thyroid nml, No JVD, Trachea midline. negative : Thyromegaly, Lymphadenopathy (R), Lymphadenopathy (L), Stiff neck, Kernig's sign, Carotid bruit, Swelling/bruising, Tracheal deviation Respiratory: positive: Chest non-tender, No respiratory distress, Breath sounds nml. negative: Wheezes, Rales, Rhonchi Cardiovascular: positive: Regular rate & rhythm, No murmur, No gallop. negative : Irregularly irregular, Extrasystoles, Tachycardia, Bradycardia, Systolic murmur, Diastolic murmur Peripheral Pulses: 2+ Radial (R), 2+ Radial (L), 2+ Dorsalis pedis (R), 2+ Dorsalis pedis (L) Abdomen: positive: Non-tender, No organomegaly, Nml bowel sounds. negative: Tenderness, Guarding, Rebound Back: positive: Nml inspection. negative: CVA tenderness (R), CVA tenderness (L ) Skin: positive: Color nml, No rash, Warm, Dry. negative: Cyanosis, Diaphoresis , Pallor, Skin rash, Decubitus Extremities: positive: Non-tender, Full ROM, Nml appearance. negative: Calf tenderness, Joint swelling, Milka's sign/cords Neurologic/Psychiatric: positive: Oriented x3, Motor nml, Sensation nml, Mood/ affect nml. negative: Weakness, Sensory loss, Facial droop, Slurred/abnml speech, Depressed mood/affect - Lab Results Fish Bones: 09/20/17 19:49 09/20/17 19:49 Assessment/Plan - Problem List (1) Viral syndrome Impression: pt report cough, headache, nausea. Denies neck stiffness. pt had LP on ER which indicate no meningitis, with hx of migraine headache. pt had one tube of blood culture positive, which it is reason pt was brought to ER and for admission. pt report her headache and cough is better now. the second time two tube blood culture is pending now, will follow up closely to determine if D/C pt pt denies fever, chill, and no fever and chill at hospital, WBC and lactic acid are in the NWL will support and IVF with NS Tylenol, Zofran PRN (2) HTN (hypertension) Impression: stable, continue home Nadolol vital monitor (3) Hyperlipidemia Impression: stable, continue home Statin lab monitor (4) Cough Impression: CXR reviewed, it is unremarkable continue Mucinex, and Guaifenesin and codein (5) Chronic back pain Impression: pt state her pain is better control, continue pain control
[2017-09-21 18:19] LABS: BILIRUBIN,URINE NEGATIVE (NEGATIVE)
[2017-09-21] MEDS: CYCLOBENZAPRINE 10 MG TABLET PO SCH (20:41)
[2017-09-21] MEDS ORDERED: rOPINIRole 0.25 MG TABLET PO SCH (21:00)
[2017-09-22] MEDS: guaiFENesin/CODEINE 5 ML UDC PO PRN ×2 (02:11→08:27)
[2017-09-22 05:37] LABS: BASOPHILS % (AUTO) 0.4 %; EOSINOPHILS # (AUTO) 0.4 10^3/uL (0.0-0.7); EOSINOPHILS % (AUTO) 4.9 %; HCT - HEMATOCRIT 36.7 % (37.0-47.0); HGB - HEMOGLOBIN 12.3 g/dL (12.0-16.0); LYMPHOCYTES # (AUTO) 3.3 10^3/uL (1.5-3.5); LYMPHOCYTES % (AUTO) 43.1 %; MEAN CORPUSCULAR HEMOGLOBIN 29.4 pg (27.0-31.0); MEAN CORPUSCULAR HGB CONC 33.5 g/dL (32.0-36.0); MEAN CORPUSCULAR VOLUME 87.7 fL (81.0-99.0); MEAN PLATELET VOLUME 7.1 fL (7.9-10.8); MONOCYTES # (AUTO) 0.7 10^3/uL (0.0-1.0); MONOCYTES % (AUTO) 9.2 %; NEUTROPHILS # (AUTO) 3.3 10^3/uL (1.5-6.6); NEUTROPHILS % (AUTO) 42.4 %; RED BLOOD COUNT 4.18 10^6/uL (4.20-5.40); RED CELL DISTRIBUTION WIDTH 12.2 % (12.0-15.0); UNCORRECTED WHITE BLOOD COUNT 7.8 x10^3/uL; WHITE BLOOD COUNT 7.8 x10^3/uL (4.8-10.8)
[2017-09-22 05:44] LABS: ALBUMIN/GLOBULIN RATIO 1.2 (1.0-2.2); BILIRUBIN,TOTAL 0.4 mg/dL (0.2-1.0); CALCIUM 8.4 mg/dL (8.5-10.3); CREATININE 0.6 mg/dL (0.4-1.0); POTASSIUM 3.6 mmol/L (3.5-5.0)
[2017-09-22] MEDS: PANTOPRAZOLE 40 MG TABLET PO SCH (06:06)
[2017-09-22] MEDS: SODIUM CHLORIDE FLUSH 0.9% 10 ML SYRINGE IVP SCH ×2 (06:06→08:28)
[2017-09-22] MEDS: GABAPENTIN 300 MG CAPSULE PO SCH (06:06)
[2017-09-22 07:55] VITALS: BP 121/89
[2017-09-22] MEDS: NADOLOL 20 MG TABLET PO SCH (08:28)
[2017-09-22] MEDS: TOPIRAMATE 100 MG TABLET PO SCH (08:28)
[2017-09-22] MEDS: ATORVASTATIN 40 MG TABLET PO SCH (08:28)
[2017-09-22] MEDS: guaiFENesin 600 MG TABLET PO SCH (08:28)
[2017-09-22] MEDS: KETOROLAC 15 MG/ML VIAL IVP PRN (08:28)
[2017-09-22] MEDS: ENOXAPARIN 40 MG/0.4 ML SYRINGE SUBQ SCH (08:35)
[2017-09-22] MEDS: POLYETHYLENE GLYCOL 3350 17 GM PACKET PO SCH (08:35)
--- NOTE | 2017-09-22 08:43 | Discharge Plan ---
Discharge Plan Disposition: 01 Home, Self Care Condition: Stable Diet: Regular Activity Restrictions: Activity as Tolerated Shower Restrictions: No Driving Restrictions: No Weight Bearing: Full Weight Instruction Topics: Headache Migraine Triggers Prevent Additional Instructions or Follow Up instructions: May follow up PCP in one week Follow-Up Care: Dietitian No Smoking: If you smoke, Please STOP! Call for help. Follow-up with: Amina Puentes MD [Primary Care Provider] -
--- NOTE | 2017-09-22 08:49 | DISCHARGE SUMMARY ---
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 Pt is told if positive in final, she will be noted. Pt denies fever, chill, night sweating, WBC in normal arrange (2) HTN (hypertension) stable, continue home regime (3) Hyperlipidemia stable (4) Cough better, continue home regime (5) Chronic back pain stable (6) migraine headache stable. pt has migraine headache as the usual, and refused to have CT of head. - HPI History of Present Illness: please refer from Dr. Castro's HPI on 09/21/17 - HOSPITAL COURSE Hospital Course: pt was admitted for one tube of blood culture positive for bacteremia in the observation unit. Two tube of new blood culture are negative in preliminary culture. Pt did not have fever, chill, night sweating, and WBC in normal arrange. UA and CXR are unremarkable. Pt is educated if positive in final culture, she will be noted. Pt refuse to have CT of brain. She state she always has headache with on and off , she had one CT of brain on last year, it was normal. - ALLERGIES Allergies/Adverse Reactions: Allergies Allergy/AdvReac Type Severity Reaction Status Date / Time neomycin AdvReac Unknown Rash Verified 09/20/17 19:14 Penicillins AdvReac Unknown Rash Verified 09/20/17 19:14 - MEDICATIONS Home Medications: Ambulatory Orders Medication Instructions Recorded Confirmed Cyclobenzaprine [Flexeril] 10 mg PO Q8H PRN 06/07/13 09/21/17 Gabapentin 600 mg PO TID 06/07/13 09/20/17 Ropinirole HCl [Requip] 0.5 mg PO QPM 12/31/14 09/21/17 traMADol [Ultram] 50 mg PO Q6H PRN 12/31/14 09/21/17 Atorvastatin Calcium 40 mg PO DAILY 09/19/17 09/20/17 HYDROcod/ACETAM 5/325 [[place] 5/325] 1 - 2 ea PO Q6H PRN #15 tablet 09/19/17 Nadolol 20 mg PO QPM 09/19/17 09/21/17 Ondansetron HCl [Zofran] 4 mg PO Q6H PRN #10 tablet 09/19/17 09/20/17 Topiramate [Topamax] 100 mg PO DAILY 09/19/17 09/21/17 guaiFENesin/CODEINE [Robitussin AC] 5 - 10 ml PO Q6H PRN #120 ml 09/19/17 - PHYSICAL EXAM AT DISCHARGE General Appearance: positive: No acute distress, Alert. negative: Lethargic Eyes Bilateral: positive: Normal inspection, PERRL, EOMI, No lid inflammation, Conjunctivae nml ENT: positive: ENT inspection nml, Pharynx nml, No signs of dehydration. negative: Purulent nasal drainage, Pharyngeal erythema, Oral lesions Neck: positive: Nml inspection, Thyroid nml, No JVD, Trachea midline. negative : Thyromegaly, Lymphadenopathy (R), Lymphadenopathy (L), Stiff neck, Kernig's sign, Carotid bruit, Swelling/bruising, Tracheal deviation Respiratory: positive: Chest non-tender, No respiratory distress, Breath sounds nml. negative: Wheezes, Rales, Rhonchi Cardiovascular: positive: Regular rate & rhythm, No murmur, No gallop. negative : Irregularly irregular, Extrasystoles, Tachycardia, Bradycardia, Systolic murmur, Diastolic murmur Peripheral Pulses: positive: 2+ Abdomen: positive: Non-tender, No organomegaly, Nml bowel sounds. negative: Tenderness, Guarding, Rebound Back: positive: Nml inspection. negative: CVA tenderness (R), CVA tenderness (L ) Skin: positive: Color nml, No rash, Warm, Dry. negative: Cyanosis, Diaphoresis , Pallor Extremities: positive: Non-tender, Full ROM, Nml appearance. negative: Calf tenderness, Joint swelling, Milka's sign/cords Neurologic/Psychiatric: positive: Oriented x3, Motor nml, Sensation nml, Mood/ affect nml. negative: Sensory loss, Facial droop, Slurred/abnml speech, Depressed mood/affect - LABS Result Diagrams: 09/22/17 05:26 09/22/17 05:26 - FOLLOW UP Follow Up: pt is advised to follow up PCP in one week
[2017-09-22] MEDS ORDERED: DOCUSATE SODIUM 250 MG CAPSULE PO SCH (09:00)
[2017-09-22] MEDS ORDERED: SENNA 8.6 MG TABLET PO SCH (09:00)
== END 2017-09-22 09:43 | disposition home or self-care (01) ==
LOC: ED 19:06 → OBS 20:24
PROVIDERS: ADMIT Internal Medicine; ATTEND Nurse Practitioner Gerontology
DX: B34.9 Viral infection, unspecified (principal); R05 Cough; R78.81 Bacteremia; I10 Essential (primary) hypertension; E78.5 Hyperlipidemia, unspecified; G89.29 Other chronic pain; M54.9 Dorsalgia, unspecified; G43.909 Migraine, unspecified, not intractable, without status migrainosus; E66.9 Obesity, unspecified; Z68.43 Body mass index [BMI] 50.0-59.9, adult; M79.7 Fibromyalgia; F32.9 Major depressive disorder, single episode, unspecified; Z87.440 Personal history of urinary (tract) infections; Z79.899 Other long term (current) drug therapy
CPT/HCPCS: 36415; 71010; 80048; 80053; 81003; 83605; 83735; 85025; 87040; 96361; 96372; 96374; 96375; 96376; 99283; 99284; A9270; G0378; J1650

== ENCOUNTER 2018-06-04 10:18 | Outpatient (CLI) | payer MEDICAID ==
[2018-06-04 14:39] LABS: CHOL/HDL RATIO 3.5 (<4.4); CHOLESTEROL 108 mg/dL; HDL CHOLESTEROL 31 mg/dL; LDL CHOLESTEROL,CALCULATED 59 mg/dL; LDL/HDL RATIO 1.9 (<4.4); VLDL CHOLESTEROL 18 mg/dL
== END 2018-06-04 10:19 | disposition home or self-care (01) ==
LOC: LAB.WCP 10:18
PROVIDERS: ATTEND Family Medicine
DX: Z00.00 Encounter for general adult medical examination without abnormal findings (principal); E78.5 Hyperlipidemia, unspecified
CPT/HCPCS: 36415; 80061; 83721; 84443

== ENCOUNTER 2018-09-12 10:19 | Outpatient (CLI) | payer OTHER ==
--- NOTE | 2018-09-12 11:22 | XRAY Report ---
Reason: BACK PAIN,LUMBAR WITH RADICULOPATHY Procedure Date: 09/12/2018 Accession Number: [id number] / [id number] Procedure: XR - Lumbar Spine 2 View CPT Code: FULL RESULT: EXAM: LUMBOSACRAL SPINE RADIOGRAPHY EXAM DATE: 09/12/2018 10:24 AM. CLINICAL HISTORY: Back pain, lumbar with radiculopathy. COMPARISONS: XR LUMBAR SPINE 2 OR 3 VIEWS 05/03/2011 11:28 AM. TECHNIQUE: 3 views. FINDINGS: Alignment: Interval development of mild levoconvex lumbar scoliosis centered about L2-L3, possibly positional. Bones: Five [id number] lumbar vertebral bodies are present. No fractures or bone lesions. Disks: Normal. Disk heights are maintained. Facets: No degenerative changes. Sacroiliac Joints: Unremarkable. Soft Tissues: Normal. The visualized bowel gas pattern is normal. IMPRESSION: Mild lumbar scoliosis, questionably positional. RADIA
== END 2018-09-12 10:20 | disposition home or self-care (01) ==
LOC: DI 10:19
PROVIDERS: ATTEND Family Medicine
DX: M54.16 Radiculopathy, lumbar region (principal)
CPT/HCPCS: 72100

== ENCOUNTER 2018-11-30 09:31 | Outpatient (CLI) | payer OTHER ==
--- NOTE | 2018-11-30 11:45 | XRAY Report ---
Reason: ANKLE PX,LEFT Procedure Date: 11/30/2018 Accession Number: [id number] / [id number] Procedure: WCP - Ankle 3 View LT CPT Code: FULL RESULT: EXAM: LEFT ANKLE RADIOGRAPHY EXAM DATE: 11/30/2018 09:43 AM. CLINICAL HISTORY: Pain and swelling for a month. No known injury. COMPARISON: XR ANKLE COMPLETE MIN 3 VIEW 04/30/2010 1:06 AM. TECHNIQUE: 3 views. FINDINGS: Bones: Normal. No fractures or bone lesions. Joints: Tiny osteophytes from the tip of the lateral malleolus and anterior tibia. No effusion. No subluxations. The ankle mortise is normally aligned. Soft Tissues: Normal. No soft tissue swelling. IMPRESSION: Minimal osteophyte anterior tibial margin and tip of the lateral malleolus. Otherwise normal ankle radiography. RADIA
== END 2018-11-30 09:32 | disposition home or self-care (01) ==
LOC: DI.WCP 09:31
PROVIDERS: ATTEND Family Medicine
DX: M25.772 Osteophyte, left ankle (principal); M25.572 Pain in left ankle and joints of left foot

== ENCOUNTER 2019-02-02 19:46 | Emergency (ER) | payer OTHER ==
[2019-02-02 19:56] VITALS: BP 145/93
--- NOTE | 2019-02-02 20:47 | XRAY Report ---
Reason: pain in L ankle Procedure Date: 02/02/2019 Accession Number: [id number] / [id number] Procedure: XR - Ankle 3 View LT CPT Code: FULL RESULT: EXAM: LEFT ANKLE RADIOGRAPHY EXAM DATE: 02/02/2019 08:04 PM. CLINICAL HISTORY: Pain in L ankle. COMPARISON: ANKLE 3 VIEW LT 11/30/2018 9:29 AM. TECHNIQUE: 3 views. FINDINGS: Bones: No acute fractures or suspicious bone lesions. Joints: No subluxations. Ankle mortise is preserved. Soft Tissues: Unremarkable. IMPRESSION: No acute radiographic abnormalities. RADIA
--- NOTE | 2019-02-02 20:52 | ED Physician Documentation ---
PD HPI LOWER EXT INJURY - Stated complaint Stated Complaint: LT ANKLE PX - Chief complaint Chief Complaint: Ext Problem - History obtained from History obtained from: Patient - History of Present Illness PD HPI LOW EXT INJURY LOCATION: Left (She sprained her ankle 2 months ago. It was slowly improving. She had a heavy day today and did a lot of walking and standing and it gradually started to hurt worse such that it was severe with walking but mild at rest. It hurts over the ATFL and radiates up the leg.) Review of Systems Constitutional: reports: Reviewed and negative Throat: reports: Reviewed and negative Cardiac: reports: Reviewed and negative PD PAST MEDICAL HISTORY - Past Medical History Cardiovascular: High cholesterol Respiratory: None Endocrine/Autoimmune: None : Chronic bladder infection Musculoskeletal: Fibromyalgia, Chronic back pain, Other Derm: Eczema - Past Surgical History Past Surgical History: Yes HEENT: Tonsil/Adenoidectomy - Present Medications Home Medications: Ambulatory Orders Medication Instructions Recorded Confirmed Cyclobenzaprine [Flexeril] 10 mg PO Q8H PRN 06/07/13 09/21/17 Gabapentin 600 mg PO TID 06/07/13 09/20/17 Ropinirole HCl [Requip] 0.5 mg PO QPM 12/31/14 09/21/17 traMADol [Ultram] 50 mg PO Q6H PRN 12/31/14 09/21/17 Atorvastatin Calcium 40 mg PO DAILY 09/19/17 09/20/17 HYDROcod/ACETAM 5/325 [[place] 5/325] 1 - 2 ea PO Q6H PRN #15 tablet 09/19/17 09/20/17 Nadolol 20 mg PO QPM 09/19/17 09/21/17 Ondansetron HCl [Zofran] 4 mg PO Q6H PRN #10 tablet 09/19/17 09/20/17 Topiramate [Topamax] 100 mg PO DAILY 09/19/17 09/21/17 guaiFENesin/CODEINE [Robitussin AC] 5 - 10 ml PO Q6H PRN #120 ml 09/19/17 09/20/17 - Allergies Allergies/Adverse Reactions: Allergies Allergy/AdvReac Type Severity Reaction Status Date / Time neomycin AdvReac Unknown Rash Verified 02/02/19 19:56 Penicillins AdvReac Unknown Rash Verified 04/13/19 19:56 - Social History Does the pt smoke?: No Smoking Status: Former smoker Does the pt drink ETOH?: Yes Does the pt have substance abuse?: No - Immunizations Immunizations are current?: Yes - POLST Patient has POLST: No PD ED PE NORMAL - Vitals Vital signs reviewed: Yes - General General: Alert and oriented X 3, No acute distress - Neck Neck: Supple, no meningeal sign, No bony TTP - Extremities Extremities: Other (Left ankle is without deformity or significant swelling. She is tender over the ATFL more so than the lateral malleolus. No proximal fibular, foot or, or medial malleolar tenderness.) - Neuro Neuro: Alert and oriented X 3, Normal speech Results - Vitals Vitals: Vital Signs - 24 hr 02/02/19 19:53 Temperature 36.2 C L Heart Rate 93 Respiratory 18 Rate Blood Pressure 145/93 H O2 Saturation 100 Oxygen O2 Source Room air Departure - Departure Disposition: Home, Self Care Clinical Impression: Left ankle sprain Qualifiers: Encounter type: initial encounter Involved ligament of ankle: anterior talofibular ligament Qualified Code(s): S93.492A - Sprain of other ligament of left ankle, initial encounter Condition: Good Record reviewed to determine appropriate education?: Yes Instructions: ED Sprain Ankle W X Ray Comments: You may walk and bear weight as tolerated but in general try to rest and but elevated for a couple of days. You can take the tramadol you have at home or ibuprofen as needed for pain. Follow-up with your doctor in 1-2 weeks if not better. Your blood pressure was elevated today on check into the emergency department. This does not mean that you have hypertension, it is a common phenomenon to come to the emergency department and have elevated blood pressure. I recommend that you see your primary care physician within the week to have it rechecked when you are feeling better.
== END 2019-02-02 21:06 | disposition home or self-care (01) ==
LOC: ED 19:46
DX: S93.492A Sprain of other ligament of left ankle, initial encounter (principal); X50.9XXA Other and unspecified overexertion or strenuous movements or postures, initial encounter; Y93.01 Activity, walking, marching and hiking; Y92.89 Other specified places as the place of occurrence of the external cause; Y99.8 Other external cause status; Z87.891 Personal history of nicotine dependence
CPT/HCPCS: 99283

== ENCOUNTER 2019-02-21 09:00 | Outpatient (CLI) | payer OTHER | END 2019-02-21 09:01 | disposition home or self-care (01) | LOC: LAB.R 09:00 | PROVIDERS: ATTEND Family Medicine | DX: R19.7 Diarrhea, unspecified (principal) | CPT/HCPCS: 81599; 83630; 87045; 87046; 87177; 87209; 87329 ==

== ENCOUNTER 2019-12-11 08:00 | Outpatient (CLI) | payer OTHER ==
[2019-12-11 12:23] LABS: BASOPHILS # (AUTO) 0.1 10^3/uL (0.0-0.1); EOSINOPHILS # (AUTO) 0.3 10^3/uL (0.0-0.7); EOSINOPHILS % (AUTO) 5.2 %; HGB - HEMOGLOBIN 13.7 g/dL (12.0-16.0); LYMPHOCYTES # (AUTO) 1.8 10^3/uL (1.5-3.5); LYMPHOCYTES % (AUTO) 36.7 %; MEAN CORPUSCULAR HEMOGLOBIN 29.7 pg (27.0-31.0); MEAN CORPUSCULAR HGB CONC 31.6 g/dL (32.0-36.0); MEAN CORPUSCULAR VOLUME 94.1 fL (81.0-99.0); MEAN PLATELET VOLUME 10.1 fL (7.9-10.8); MONOCYTES # (AUTO) 0.5 10^3/uL (0.0-1.0); MONOCYTES % (AUTO) 9.8 %; NEUTROPHILS # (AUTO) 2.3 10^3/uL (1.5-6.6); NEUTROPHILS % (AUTO) 47.1 %; PLT - PLATELET COUNT 330 10^3/uL (130-450); RED BLOOD COUNT 4.61 10^6/uL (4.20-5.40); WHITE BLOOD COUNT 4.8 x10^3/uL (4.8-10.8)
[2019-12-11 12:46] LABS: ALBUMIN 3.8 g/dL (3.2-5.5); ALBUMIN/GLOBULIN RATIO 1.3 (1.0-2.2); ALKALINE PHOSPHATASE 71 IU/L (42-121); ALT ALANINE AMINOTRANSFERASE 25 IU/L (10-60); AST ASPARTATE AMINOTRANSFERASE 18 IU/L (10-42); BILIRUBIN,TOTAL 0.7 mg/dL (0.2-1.0); BUN - BLOOD UREA NITROGEN 13 mg/dL (6-20); CALCIUM 9.1 mg/dL (8.5-10.3); CARBON DIOXIDE - CO2 25 mmol/L (21-32); CHLORIDE 111 mmol/L (101-111); CHOLESTEROL 137 mg/dL; CREATININE 0.8 mg/dL (0.4-1.0); GFR - MDRD 83 (>89); GLUCOSE 83 mg/dL (70-100); HDL CHOLESTEROL 45 mg/dL; LDL CHOLESTEROL,CALCULATED 72 mg/dL; LDL/HDL RATIO 1.6 (<4.4); SODIUM 141 mmol/L (135-145); TOTAL PROTEIN 6.7 g/dL (6.7-8.2); VLDL CHOLESTEROL 20 mg/dL
== END 2019-12-11 23:59 | disposition home or self-care (01) ==
LOC: LAB.WCP 08:00
PROVIDERS: ATTEND Nurse Practitioner Family
DX: E78.5 Hyperlipidemia, unspecified (principal); Z79.899 Other long term (current) drug therapy; E66.01 Morbid (severe) obesity due to excess calories
CPT/HCPCS: 36415; 80053; 80061; 83721; 84443; 85025

== ENCOUNTER 2020-04-12 12:29 | Emergency (ER) | payer OTHER ==
[2020-04-12] MEDS ORDERED: KETOROLAC 30 MG/ML VIAL IVP STA (12:46)
--- NOTE | 2020-04-12 12:52 | ED Physician Documentation ---
History of Present Illness - Stated complaint Stated Complaint: LOW BACK PX - Chief complaint Chief Complaint: Back Pain - History obtained from History obtained from: Patient - History of Present Illness Timing: Today, How many hours ago (2) Pain level max: 10 Pain level now: 10 - Additonal information Additional information: 35-year-old female presents the emergency department with left flank pain today. Radiating around to the left lower abdomen. No urinary symptoms. No dysuria. No frequency. No nausea. No vomiting. No diarrhea. No constipation. No vaginal bleeding or discharge. No numbness or tingling. Has had herniated disks in the past, states that this does feel different however. No history of renal stones. Nothing makes it better or worse. No fevers. Has not taken anything for the pain at home. No recent travel or surgery. No recent trauma. She is not , breast-feeding or trying to become . Review of Systems Ten Systems: 10 systems reviewed and negative Constitutional: denies: Fever, Chills Respiratory: denies: Cough GI: denies: Nausea, Vomiting, Diarrhea : denies: Dysuria, Frequency, Hesitancy, Incontinent, Hematuria, Now EGA Skin: denies: Rash Musculoskeletal: denies: Neck pain Neurologic: denies: Focal weakness, Numbness, Headache PD PAST MEDICAL HISTORY - Past Medical History Past Medical History: Yes Cardiovascular: High cholesterol Respiratory: None Endocrine/Autoimmune: None : Chronic bladder infection Musculoskeletal: Fibromyalgia, Chronic back pain, Other Derm: Eczema - Past Surgical History Past Surgical History: Yes HEENT: Tonsil/Adenoidectomy - Present Medications Home Medications: Ambulatory Orders Medication Instructions Recorded Confirmed Cyclobenzaprine [Flexeril] 10 mg PO Q8H PRN 06/07/13 09/21/17 Gabapentin 600 mg PO TID 06/07/13 09/20/17 Ropinirole HCl [Requip] 0.5 mg PO QPM 12/31/14 09/21/17 traMADol [Ultram] 50 mg PO Q6H PRN 12/31/14 09/21/17 Atorvastatin Calcium 40 mg PO DAILY 09/19/17 09/20/17 HYDROcod/ACETAM 5/325 [[place] 5/325] 1 - 2 ea PO Q6H PRN #15 tablet 09/19/17 09/20/17 Ondansetron HCl [Zofran] 4 mg PO Q6H PRN #10 tablet 09/19/17 09/20/17 Topiramate [Topamax] 100 mg PO DAILY 09/19/17 09/21/17 guaiFENesin/CODEINE [Robitussin AC] 5 - 10 ml PO Q6H PRN #120 ml 09/19/17 09/20/17 nadoloL [Nadolol] 20 mg PO QPM 09/19/17 09/21/17 Ibuprofen [Motrin] 800 mg PO Q8H PRN #30 tablet 04/12/20 Ondansetron Odt [Zofran] 4 mg TL Q6H PRN #10 tablet 04/12/20 Oxycodone HCl/Acetaminophen 1 - 2 each PO Q6H PRN #14 tablet 04/12/20 [Percocet 5-325 mg Tablet] Tamsulosin [Flomax] 0.4 mg PO DAILY #14 capsule 04/12/20 - Allergies Allergies/Adverse Reactions: Allergies Allergy/AdvReac Type Severity Reaction Status Date / Time neomycin AdvReac Unknown Rash Verified 04/12/20 12:32 Penicillins AdvReac Unknown Rash Verified 04/12/20 12:32 - Social History Does the pt smoke?: No Smoking Status: Never smoker Does the pt drink ETOH?: Yes Does the pt have substance abuse?: No - Immunizations Immunizations are current?: Yes - POLST Patient has POLST: No PD ED PE NORMAL - Vitals Vital signs reviewed: Yes - General General: Alert and oriented X 3, No acute distress, Other (Morbidly obese female, BMI 51.6) - HEENT HEENT: Moist mucous membranes - Neck Neck: Supple, no meningeal sign - Cardiac Cardiac: RRR, Strong equal pulses - Respiratory Respiratory: No respiratory distress, Clear bilaterally - Abdomen Abdomen: Soft, Non tender, Non distended - Back Back: No CVA TTP, No spinal TTP (No step-off or deformity. No spasm.) - Derm Derm: Warm and dry - Extremities Extremities: No calf tenderness / cord - Neuro Neuro: Alert and oriented X 3, chair maker 2-12 intact, No motor deficit, No sensory deficit, Normal speech, Other (Normal bilateral lower extremity patellar and ankle jerk reflexes. Normal great toe extension bilaterally. no saddle anesthesia) - Psych Psych: Normal mood, Normal affect Results - Vitals Vitals: Vital Signs - 24 hr 04/12/20 04/12/20 12:33 14:25 Temperature 36.2 C L 37.1 C Heart Rate 66 60 Respiratory 20 18 Rate Blood Pressure 104/67 118/64 O2 Saturation 100 100 Oxygen O2 Source Room air - Labs Labs: Laboratory Tests 04/12/20 04/12/20 04/12/20 12:40 12:40 12:52 WBC 5.2 RBC 4.71 Hgb 13.9 Hct 43.2 MCV 91.7 MCH 29.5 MCHC 32.2 RDW 11.9 L Plt Count 352 MPV 9.3 Neut # (Auto) 2.6 Lymph # (Auto) 1.9 Wilson # (Auto) 0.5 Eos # (Auto) 0.2 Baso # (Auto) 0.0 Absolute Nucleated RBC 0.00 Nucleated RBC % 0.0 Sodium 139 Potassium 4.1 Chloride 106 Carbon Dioxide 25 Anion Gap 8.0 BUN 10 Creatinine 0.9 Estimated GFR (MDRD) 72 L Glucose 96 Calcium 9.1 Total Bilirubin 0.8 AST 16 ALT 21 Alkaline Phosphatase 81 Total Protein 7.0 Albumin 3.9 Globulin 3.1 Albumin/Globulin Ratio 1.3 Lipase 27 Urine Color YELLOW Urine Clarity CLEAR Urine pH 6.5 Ur Specific [place] 1.010 Urine Protein NEGATIVE Urine Glucose (UA) NEGATIVE Urine Ketones NEGATIVE Urine Occult Blood LARGE H Urine Nitrite NEGATIVE Urine Bilirubin NEGATIVE Urine Urobilinogen 0.2 (NORMAL) Ur Leukocyte Esterase TRACE H Urine RBC 11-25 H Urine WBC 0-3 Ur Squamous Epith Cells MANY Squamous H Urine Bacteria Rare Ur Microscopic Review INDICATED Urine Culture Comments NOT INDICATED Urine HCG, Qual NEGATIVE - Rads (name of study) CT abd/pelvis Radiology: Prelim report reviewed, EMP read contemporaneously, See rad report (1. A 3 x 8 mm stone in the mid left ureter causing mild left hydronephrosis. 2. An 8 mm nonobstructing stone in right kidney. 3. A 3.5 x 5.7 cm right ovarian cyst. Recommend nonemergent pelvic ultrasound for follow-up. ) PD MEDICAL DECISION MAKING - ED course Complexity details: reviewed results, re-evaluated patient, considered differential, d/w patient ED course: 35-year-old female with a left sided mid ureteral stone. 3 x 8 mm. Mild left hydronephrosis. Pain well controlled with IV lidocaine and Toradol. Will prescribe pain medications for home and have her follow-up with urology for further care. No evidence of concurrent UTI. No fever. She can follow-up with her doctor regarding the right ovarian cyst. CT findings were reviewed with the patient. Patient counseled regarding signs and symptoms for which I believe and urgent re-evaluation would be necessary. Patient with good understanding of and agreement to plan and is comfortable going home at this time This document was made in part using voice recognition software. While efforts are made to proofread this document, sound alike and grammatical errors may occur. Departure - Departure Disposition: Home, Self Care Clinical Impression: Ureteral calculus, left, Right ovarian cyst Condition: Good Instructions: ED Stone Renal W Colic Follow-Up: Harsh Harp MD [Physician No Access] - Within 1 week Prescriptions: Tamsulosin [Flomax] 0.4 mg PO DAILY #14 capsule Ibuprofen [Motrin] 800 mg PO Q8H PRN #30 tablet PRN Reason: PAIN &/OR FEVER Oxycodone HCl/Acetaminophen [Percocet 5-325 mg Tablet] 1 - 2 each PO Q6H PRN #14 tablet PRN Reason: pain Ondansetron Odt [Zofran] 4 mg TL Q6H PRN #10 tablet PRN Reason: Nausea / Vomiting Comments: Drink plenty of water. Return if you worsen. Follow-up with urology for further care. You have a 3 x 8 mm stone in your left mid ureter. This will likely pass, but there is a chance it could need removal. Therefore it is important to follow-up with urology. Do not drink alcohol or drive while on narcotic pain medicine. Note that many narcotic pain relievers also contain tylenol/acetaminophen. Please ensure that your total dose of acetaminophen from all sources does not exceed 3 grams (3000mg) per day. You may constipated on this medication, take a stool softener such as "Colace" twice a day while you are on it. Also recommend a dvzq-rss-[id number] laxative such as senna or MiraLAX any day that you do not have a bowel movement. If you received narcotic pain medication in the emergency department, do not drive or operate machinery for the next 24 hours. Discharge Date/Time: 04/12/20 14:30
[2020-04-12 12:54] LABS: BASOPHILS % (AUTO) 0.8 %; EOSINOPHILS # (AUTO) 0.2 10^3/uL (0.0-0.7); EOSINOPHILS % (AUTO) 4.3 %; HGB - HEMOGLOBIN 13.9 g/dL (12.0-16.0); LYMPHOCYTES # (AUTO) 1.9 10^3/uL (1.5-3.5); LYMPHOCYTES % (AUTO) 35.8 %; MEAN CORPUSCULAR HEMOGLOBIN 29.5 pg (27.0-31.0); MEAN CORPUSCULAR HGB CONC 32.2 g/dL (32.0-36.0); MEAN CORPUSCULAR VOLUME 91.7 fL (81.0-99.0); MEAN PLATELET VOLUME 9.3 fL (7.9-10.8); MONOCYTES # (AUTO) 0.5 10^3/uL (0.0-1.0); MONOCYTES % (AUTO) 8.7 %; NEUTROPHILS # (AUTO) 2.6 10^3/uL (1.5-6.6); PLT - PLATELET COUNT 352 10^3/uL (130-450); RED BLOOD COUNT 4.71 10^6/uL (4.20-5.40); RED CELL DISTRIBUTION WIDTH 11.9 % (12.0-15.0); WHITE BLOOD COUNT 5.2 x10^3/uL (4.8-10.8)
[2020-04-12 12:59] LABS: BILIRUBIN,URINE NEGATIVE (NEGATIVE); GLUCOSE, URINE (UA) NEGATIVE (NEGATIVE); KETONES,URINE (UA) NEGATIVE (NEGATIVE); LEUKOCYTE ESTERASE, URINE TRACE (NEGATIVE); NITRITE,URINE NEGATIVE (NEGATIVE); OCCULT BLOOD,URINE LARGE (NEGATIVE); PH,URINE 6.5 PH (5.0-7.5); PROTEIN,URINE NEGATIVE (NEGATIVE); UROBILINOGEN,URINE 0.2 (NORMAL) E.U./dL (NORMAL)
[2020-04-12 13:06] LABS: CLARITY,URINE CLEAR (CLEAR); HCG UR QUAL NEGATIVE; SQUAMOUS EPITHELIAL CELL,UR MANY Squamous (<= Few)
[2020-04-12 13:07] LABS: BACTERIA,URINE Rare /HPF (None Seen)
[2020-04-12 13:07] LABS: ALBUMIN 3.9 g/dL (3.2-5.5); ALBUMIN/GLOBULIN RATIO 1.3 (1.0-2.2); BILIRUBIN,TOTAL 0.8 mg/dL (0.2-1.0); CALCIUM 9.1 mg/dL (8.5-10.3); CREATININE 0.9 mg/dL (0.4-1.0)
[2020-04-12] MEDS ORDERED: LIDOCAINE-MPF 2% 10 ML in SODIUM CHLORIDE 0.9% 50 ML IV STA (13:25)
--- NOTE | 2020-04-12 13:26 | CT Report ---
PROCEDURE: Abdomen/Pelvis WO INDICATIONS: Left flank pain, possible renal stone? TECHNIQUE: Noncontrast 5 mm thick sections acquired from the diaphragms to the symphysis. 5 mm coronal and sagi ttal reformats were then performed. For radiation dose reduction, the following was used: automated exposure control, adjustment of mA and/or kV according to patient size. COMPARISON: None. FINDINGS: Image quality: Excellent. ABDOMEN: Lung bases: Lung bases are clear. Heart size is normal. Small hiatal hernia. Solid organs: A 3 x 8 mm stone is present in the mid left ureter. There is mild left hydronephrosis. A nonuprising stone is seen in the right kidney measuring 8 mm. No right hydronephrosis. Liver and spleen are normal in size. Gallbladder is normal Pancreas is normal in contours. No adre nal nodules. Peritoneum and bowel: Unenhanced bowel loops demonstrate normal wall thickness and caliber. No free fluid or air. Nodes and vessels: No retroperitoneal or mesenteric adenopathy by size criteria. Aorta and inferior vena cava are normal in caliber. Miscellaneous: No ventral hernias. PELVIS: Genitourinary: Bladder wall thickness is normal. There is a 3.5 x 5.7 cm cyst in the right ovary. Th e uterus and left ovary are normal. Miscellaneous: No inguinal hernias or adenopathy. Bones: No suspicious bony lesions. No vertebral body compression fractures. Moderate degenerative disc disease at L4-L5 and L5-S1. IMPRESSION: 1. A 3 x 8 mm stone in the mid left ureter causing mild left hydronephrosis. 2. An 8 mm nonobstructing stone in right kidney. 3. A 3.5 x 5.7 cm right ovarian cyst. Recommend nonemergent pelvic ultrasound for follow-up. Reviewed by: Gavino Hernandez MD on 04/12/2020 1:24 PM PDT Approved by: Gavino Hernandez MD on 04/12/2020 1:24 PM PDT Station ID: [id number]
[2020-04-12] MEDS ORDERED: SODIUM CHLORIDE 0.9% 1,000 ML IV STA (13:30)
[2020-04-12 14:26] VITALS: BP 118/64
== END 2020-04-12 14:30 | disposition home or self-care (01) ==
LOC: ED 12:29
DX: N13.2 Hydronephrosis with renal and ureteral calculous obstruction (principal); N83.201 Unspecified ovarian cyst, right side; E66.01 Morbid (severe) obesity due to excess calories; Z68.43 Body mass index [BMI] 50.0-59.9, adult
CPT/HCPCS: 36415; 74176; 80053; 81001; 81025; 83690; 85025; 96365; 96375; 99284; J7040; 81003; 87086

== ENCOUNTER 2021-03-31 20:29 | Emergency (ER) | payer OTHER ==
--- OUTSIDE RECORDS SUMMARY | 2021-03-31 21:12 | EXTERNAL MEDICAL SUMMARY RPT | Continuity of Care Document ---
:1985 Demographics Phone Unavailable Preferred Language Unknown Marital Status Unknown Mormon Affiliation Unknown Race Unknown Ethnic Group Unknown Author Organization [facility] Address [address] [phone] Phone Allergies Encounters Medications Problems Results
--- NOTE | 2021-03-31 21:44 | ED Physician Documentation ---
PD HPI LOWER EXT INJURY - Stated complaint Stated Complaint: LT ANKLE PX/INJ - Chief complaint Chief Complaint: Ext Problem - History obtained from History obtained from: Patient - History of Present Illness PD HPI LOW EXT INJURY LOCATION: Left, Ankle Type of injury: Other (no injury (onset while walking)) Timing - onset: Today (this afternoon) Timing - details: Abrupt onset Pain level now: 7 Improved by: Rest Worsened by: Moving Associated symptoms: Swelling. No: Weakness, Discolored Recently seen: Not recently seen - Additional information Additional information: while walking earlier today, sudden onset left ankle pain associated with popping sensation/sound. pain is worse with movement, particularly ankle flexion. She is able to partially weight-bear. She says her tried to massage and "manipulate" (per patient) the left ankle and it again had popping sensation/sound with sudden recurrence of the pain. Pain is predominantly posterior aspect of the left ankle. Review of Systems Musculoskeletal: reports: Extremity pain, Joint pain, Extremity swelling, Joint swelling, Pain with weight bearing. denies: Back pain Neurologic: reports: Numbness (decreased sensation left ankle/foot). 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 : Chronic bladder infection, Kidney stones HEENT: None Psych: None Musculoskeletal: Fibromyalgia, Chronic back pain, Other Derm: Eczema - Past Surgical History Past Surgical History: Yes HEENT: Tonsil/Adenoidectomy - Present Medications Home Medications: Ambulatory Orders Medication Instructions Recorded Confirmed Cyclobenzaprine [Flexeril] 10 mg PO Q8H PRN 06/07/13 09/21/17 Gabapentin 600 mg PO TID 06/07/13 09/20/17 Ropinirole HCl [Requip] 0.5 mg PO QPM 12/31/14 09/21/17 traMADol [Ultram] 50 mg PO Q6H PRN 12/31/14 09/21/17 Atorvastatin Calcium 40 mg PO DAILY 09/19/17 09/20/17 HYDROcod/ACETAM 5/325 [[place] 5/325] 1 - 2 ea PO Q6H PRN #15 tablet 09/19/17 09/20/17 Ondansetron HCl [Zofran] 4 mg PO Q6H PRN #10 tablet 09/19/17 09/20/17 Topiramate [Topamax] 100 mg PO DAILY 09/19/17 09/21/17 guaiFENesin/CODEINE [Robitussin AC] 5 - 10 ml PO Q6H PRN #120 ml 09/19/17 09/20/17 nadoloL [Nadolol] 20 mg PO QPM 09/19/17 09/21/17 Ibuprofen [Motrin] 800 mg PO Q8H PRN #30 tablet 04/12/20 Ondansetron Odt [Zofran] 4 mg TL Q6H PRN #10 tablet 04/12/20 Oxycodone HCl/Acetaminophen 1 - 2 each PO Q6H PRN #14 tablet 04/12/20 [Percocet 5-325 mg Tablet] Tamsulosin [Flomax] 0.4 mg PO DAILY #14 capsule 04/12/20 Oxycodone HCl/Acetaminophen 1 - 2 each PO Q6H PRN #20 tablet 05/31/20 [Percocet 5-325 mg Tablet] Tamsulosin [Flomax] 0.4 mg PO DAILY #14 capsule 05/31/20 Ondansetron Odt [Zofran] 4 mg TL Q6H PRN #10 tablet 06/02/20 Oxycodone HCl/Acetaminophen 1 - 2 each PO Q6H PRN #14 tablet 06/02/20 [Percocet 5-325 mg Tablet] cephALEXin [Keflex] 500 mg PO Q6H #28 capsule 06/02/20 traMADol [Ultram] 50 mg PO Q4-6H PRN #14 tablet 03/31/21 - Allergies Allergies/Adverse Reactions: Allergies Allergy/AdvReac Type Severity Reaction Status Date / Time neomycin AdvReac Unknown Rash Verified 03/31/21 20:43 Penicillins AdvReac Unknown Rash Verified 03/31/21 20:43 - Social History Does the pt smoke?: No Smoking Status: Never smoker Does the pt drink ETOH?: Yes Does the pt have substance abuse?: No - Immunizations Immunizations are current?: Yes - POLST Patient has POLST: No PD ED PE NORMAL - Vitals Vital signs reviewed: Yes - General General: Alert and oriented X 3, No acute distress (NAD at rest) - Derm Derm: Normal color, Warm and dry - Extremities Extremities: No deformity, No edema, No calf tenderness / cord, Other (negative Quiroga test) PD ED PE EXPANDED - Extremities Extremities: Tenderness (mild TTP posterior aspect left ankle. nontender medial and lateral malleoli. full strength of left plantarflexion and dorsiflexion athough increased pain with plantarflexion. ), Pedal Pulses Present, Sensory intact, Vascular intact, Tendon intact Results - Vitals Vitals: Vital Signs - 24 hr 03/31/21 03/31/21 20:39 22:39 Temperature 97.7 C H Heart Rate 70 70 Respiratory 18 18 Rate Blood Pressure 122/55 L 129/64 O2 Saturation 100 100 Oxygen O2 Source Room air - Rads (name of study) left ankle xrays Radiology: Prelim report reviewed, See rad report PD MEDICAL DECISION MAKING - ED course Complexity details: reviewed results, considered differential, d/w patient ED course: unremarkable left ankle xrays in setting of sudden pain when walking earlier today. Sprain is suspected. No findings on exam to suggest achilles tendon rupture. placed in splint and crutches provided to minimize movement and weight- bearing. She says she took ibuprofen at home without adequate relief. Given tramadol in ED with rx for same. Departure - Departure Disposition: Home, Self Care Clinical Impression: Ankle sprain Qualifiers: Encounter type: initial encounter Involved ligament of ankle: unspecified ligament Laterality: left Qualified Code(s): S93.402A - Sprain of unspecified ligament of left ankle, initial encounter Condition: Good Instructions: ED Sprain Ankle W X Ray, ED Crutch Walking Follow-Up: SHANNA ROMAN [Primary Care Provider] - Prescriptions: traMADol [Ultram] 50 mg PO Q4-6H PRN #14 tablet PRN Reason: Pain Comments: I am prescribing a short course of narcotic pain medication for you. These are potentially dangerous and addictive medications that should be used carefully. These medications may constipate you. Take an avvd-vza-kjilyoa stool softener (docusate) twice daily with plenty of water while taking these medications. If you go 24 hours without a bowel movement, take zlue-[id number] miralax, per package instructions. Do not drink or drive while taking these medications. If you received narcotic or sedating medications while in the emergency department, do not drive for 24 hours. Store this medication in a safe, secure place and out of reach of children. It is a violation of federal law to give or sell this medication to another person or to use in a manner other than prescribed. The ED will not refill narcotic prescriptions, including prescriptions lost or stolen. To dispose of unwanted medications: 1. [facility] at [address] in [place] has a medication drop box. They accept prescription medications (in pill form) Monday through Monday 9:00 a.m. to 5:00 p.m. 2. [facility] accepts prescription medications (in pill form only) for disposal year round. Call for more information. 3. Contact the [facility] for the next [facility] sponsored prescription drug collection event. , [phone], or [phone] Discharge Date/Time: 03/31/21 22:41
[2021-03-31] MEDS ORDERED: traMADol 50 MG TABLET PO STA (22:04)
[2021-03-31 22:40] VITALS: BP 129/64
--- NOTE | 2021-04-01 08:43 | XRAY Report ---
PROCEDURE: Ankle 3 View LT INDICATIONS: walking, ankle pain TECHNIQUE: 3 views of the ankle were acquired. COMPARISON: None FINDINGS: Bones: No fractures or dislocations. Ankle mortise is normally aligned. No suspicious bony lesions . Soft tissues: No tibiotalar joint effusion. Achilles tendon appears normal. There is mild soft tis lu swelling. IMPRESSION: No acute abnormality of the left ankle. Findings are consistent with preliminary findings from [facility]. Reviewed by: Damien Arias on 04/01/2021 8:42 AM PDT Approved by: Damien Arias on 04/01/2021 8:42 AM PDT Station ID: [id number]
== END 2021-03-31 22:41 | disposition home or self-care (01) ==
LOC: ED 20:29
DX: S93.402A Sprain of unspecified ligament of left ankle, initial encounter (principal); X50.9XXA Other and unspecified overexertion or strenuous movements or postures, initial encounter; Y93.01 Activity, walking, marching and hiking
CPT/HCPCS: 73610; 99283; A9270

== ENCOUNTER 2021-05-20 16:45 | Emergency (ER) | payer OTHER ==
[2021-05-20 17:06] VITALS: BP 165/86
[2021-05-20] MEDS ORDERED: PROMETHAZINE 25 MG/1 ML VIAL IM STA (17:28)
[2021-05-20] MEDS ORDERED: KETOROLAC 30 MG/ML VIAL IM STA (17:28)
[2021-05-20] MEDS ORDERED: HYDROmorphone 1 MG/ML CARPUJECT IM STA (17:28)
--- NOTE | 2021-05-20 17:34 | ED Physician Documentation ---
PD HPI HEADACHE - Stated complaint Stated Complaint: PARKS,METALIC TASTE,NECK STIFF - Chief complaint Chief Complaint: Heent - History obtained from History obtained from: Patient - Additional information Additional information: Patient comes emergency department chief complaint of headache. She has a history of migraines and states this feels similar but that she also has a sense of tightness and pain in her right mandibular/TMJ/almond paste molder area which is new. She states she has a metallic taste in her mouth and also feels as though there is something draining when she bends forward. However, she has not noticed any swelling or any pain in her teeth. No gingival pain. Patient states that the pain starts in her right neck musculature and comes up over her ear to her confucianism and behind her right eye. She states this is usual for her migraines. She has tried taking Maxalt at home and is talk to her neurologist. She tried to see her PCP about the jaw pain today but was told to come here instead. No other complaints at this time. Review of Systems Ten Systems: 10 systems reviewed and negative Constitutional: reports: Reviewed and negative Eyes: reports: Reviewed and negative Ears: reports: Reviewed and negative Nose: reports: Reviewed and negative Throat: reports: Reviewed and negative Cardiac: reports: Reviewed and negative Respiratory: reports: Reviewed and negative GI: reports: Nausea. 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 : Chronic bladder infection, Kidney stones HEENT: None Psych: None Musculoskeletal: Fibromyalgia, Chronic back pain, Other Derm: Eczema - Past Surgical History Past Surgical History: Yes HEENT: Tonsil/Adenoidectomy - Present Medications Home Medications: Ambulatory Orders Medication Instructions Recorded Confirmed Cyclobenzaprine [Flexeril] 10 mg PO Q8H PRN 06/07/13 09/21/17 Gabapentin 600 mg PO TID 06/07/13 09/20/17 Ropinirole HCl [Requip] 0.5 mg PO QPM 12/31/14 09/21/17 traMADol [Ultram] 50 mg PO Q6H PRN 12/31/14 09/21/17 Atorvastatin Calcium 40 mg PO DAILY 09/19/17 09/20/17 HYDROcod/ACETAM 5/325 [[place] 5/325] 1 - 2 ea PO Q6H PRN #15 tablet 09/19/17 09/20/17 Ondansetron HCl [Zofran] 4 mg PO Q6H PRN #10 tablet 09/19/17 09/20/17 Topiramate [Topamax] 100 mg PO DAILY 09/19/17 09/21/17 guaiFENesin/CODEINE [Robitussin AC] 5 - 10 ml PO Q6H PRN #120 ml 09/19/17 09/20/17 nadoloL [Nadolol] 20 mg PO QPM 09/19/17 09/21/17 Ibuprofen [Motrin] 800 mg PO Q8H PRN #30 tablet 04/12/20 Ondansetron Odt [Zofran] 4 mg TL Q6H PRN #10 tablet 04/12/20 Oxycodone HCl/Acetaminophen 1 - 2 each PO Q6H PRN #14 tablet 04/12/20 [Percocet 5-325 mg Tablet] Tamsulosin [Flomax] 0.4 mg PO DAILY #14 capsule 04/12/20 Oxycodone HCl/Acetaminophen 1 - 2 each PO Q6H PRN #20 tablet 05/31/20 [Percocet 5-325 mg Tablet] Tamsulosin [Flomax] 0.4 mg PO DAILY #14 capsule 05/31/20 Ondansetron Odt [Zofran] 4 mg TL Q6H PRN #10 tablet 06/02/20 Oxycodone HCl/Acetaminophen 1 - 2 each PO Q6H PRN #14 tablet 06/02/20 [Percocet 5-325 mg Tablet] cephALEXin [Keflex] 500 mg PO Q6H #28 capsule 06/02/20 traMADol [Ultram] 50 mg PO Q4-6H PRN #14 tablet 03/31/21 - Allergies Allergies/Adverse Reactions: Allergies Allergy/AdvReac Type Severity Reaction Status Date / Time neomycin AdvReac Unknown Rash Verified 05/20/21 17:06 Penicillins AdvReac Unknown Rash Verified 05/20/21 17:06 - Social History Does the pt smoke?: No Smoking Status: Never smoker Does the pt drink ETOH?: Yes Does the pt have substance abuse?: No - Immunizations Immunizations are current?: Yes - POLST Patient has POLST: No PD ED PE NORMAL - Vitals Vital signs reviewed: Yes - General General: Alert and oriented X 3, No acute distress, Well developed/nourished - HEENT HEENT: Atraumatic, PERRL, EOMI, Moist mucous membranes, Other (Tenderness over right almond paste molder muscles and buccal mucosa without edema or induration. No parotid gland enlargement. No lymphadenopathy either postauricular or anterior cervical on the right. No erythema of skin. No dental tenderness) - Neck Neck: Supple, no meningeal sign, Other (Tenderness over right trapezius distribution.) - Cardiac Cardiac: RRR, No murmur - Respiratory Respiratory: No respiratory distress, Clear bilaterally - Abdomen Abdomen: Soft, Non tender, Non distended - Derm Derm: Normal color, Warm and dry, No rash - Extremities Extremities: No deformity, No edema - Neuro Neuro: Alert and oriented X 3 - Psych Psych: Normal mood, Normal affect Results - Vitals Vitals: Vital Signs - 24 hr 05/20/21 17:01 Temperature 36.9 C Heart Rate 77 Respiratory 16 Rate Blood Pressure 165/86 H O2 Saturation 98 Oxygen O2 Source Room air PD MEDICAL DECISION MAKING - ED course Complexity details: considered differential, d/w patient ED course: Patient was treated symptomatically in the emergency department with IM Phenergan, Toradol, and Dilaudid. On reevaluation she was found to be feeling better. We have discussed home management of her migraines. For any further concerns she may follow-up with her neurologist. Departure - Departure Disposition: 01 Home, Self Care Clinical Impression: Migraine Qualifiers: Migraine type: unspecified Status migrainosus presence: without status migrainosus Intractability: not intractable Qualified Code(s): G43.909 - Migraine, unspecified, not intractable, without status migrainosus Condition: Stable Instructions: ED Headache Migraine Comments: Been given sedating medication in the emergency department today. Please do not drive for the next 12 hours.
== END 2021-05-20 17:53 | disposition home or self-care (01) ==
LOC: ED 16:45
DX: G43.909 Migraine, unspecified, not intractable, without status migrainosus (principal)
CPT/HCPCS: 96372; 99283; J1170

== ENCOUNTER 2021-07-29 00:28 | Outpatient (CLI) | payer OTHER | END 2021-07-29 00:29 | disposition critical access hospital (66) | LOC: EMS 00:28 | DX: R07.89 Other chest pain (principal) | CPT/HCPCS: A0425; A0429 ==

== ENCOUNTER 2021-07-29 00:42 | Emergency (ER) | payer OTHER ==
--- NOTE | 2021-07-29 01:01 | ED Physician Documentation ---
PD HPI CHEST PAIN - Stated complaint Stated Complaint: MID STERNAL/BACK PAIN - Chief complaint Chief Complaint: Cardiac - History obtained from History obtained from: Patient - History of Present Illness Timing - onset: How many hours ago (1) Timing - onset during: Rest Timing - duration: Hours (1) Timing - details: Abrupt onset, Still present (lessening the past 20 minutes, but still present.) Quality: Aching, Sharp, Pain Location: Substernal. No: Epigastric Radiation: Back Improved by: No: Rest Worsened by: Movement. No: Exertion, Inspiration Associated symptoms: Feeling faint / dizzy. No: Shortness of air, Nausea, General Weakness, Palpitations, Cough Similar symptoms before: Has not had sx before Recently seen: Not recently seen Review of Systems Constitutional: denies: Fever Nose: denies: Rhinorrhea / runny nose, Congestion Throat: denies: Sore throat Cardiac: denies: Palpitations, Pedal edema Respiratory: denies: Cough GI: denies: Abdominal Pain, Nausea, Vomiting, Diarrhea Skin: denies: Rash, Lesions Neurologic: denies: Near syncope, Altered mental status, Headache Endocrine: denies: Weight loss PD PAST MEDICAL HISTORY - Past Medical History Past Medical History: Yes Cardiovascular: High cholesterol Respiratory: None Neuro: None Endocrine/Autoimmune: None GI: None 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 : Chronic bladder infection, Kidney stones HEENT: None Psych: None Musculoskeletal: Fibromyalgia, Chronic back pain, Other Derm: Eczema Other Past Medical History: Chronic pain - Past Surgical History Past Surgical History: Yes HEENT: Tonsil/Adenoidectomy - Present Medications Home Medications: Ambulatory Orders Medication Instructions Recorded Confirmed Cyclobenzaprine [Flexeril] 10 mg PO Q8H PRN 06/07/13 07/29/21 Gabapentin 600 mg PO TID 06/07/13 07/29/21 Ropinirole HCl [Requip] 0.5 mg PO QPM 12/31/14 07/29/21 Atorvastatin Calcium 40 mg PO DAILY 09/19/17 07/29/21 Topiramate [Topamax] 100 mg PO DAILY 09/19/17 07/29/21 nadoloL [Nadolol] 20 mg PO QPM 09/19/17 07/29/21 Ibuprofen [Motrin] 800 mg PO Q8H PRN #30 tablet 04/12/20 07/29/21 DULoxetine [Cymbalta] 90 mg PO DAILY 07/29/21 07/29/21 Oxycodone HCl/Acetaminophen 1 - 2 each PO Q6H PRN #14 tablet 07/29/21 [Percocet 5-325 mg Tablet] Rizatriptan Benzoate [Rizatriptan] 5 mg PO DAILY 07/29/21 07/29/21 Tizanidine HCl [Zanaflex] 4 mg PO QPM 07/29/21 07/29/21 tiZANidine [Zanaflex] 4 mg PO TID PRN #15 tablet 07/29/21 - Allergies Allergies/Adverse Reactions: Allergies Allergy/AdvReac Type Severity Reaction Status Date / Time neomycin AdvReac Unknown Rash Verified 07/29/21 00:50 Penicillins AdvReac Unknown Rash Verified 07/29/21 00:50 - Social History Does the pt smoke?: No Smoking Status: Never smoker Does the pt drink ETOH?: Yes Does the pt have substance abuse?: No - Immunizations Immunizations are current?: Yes - POLST Patient has POLST: No PD ED PE NORMAL - Vitals Vital signs reviewed: Yes - General General: Alert and oriented X 3, Well developed/nourished, Other (appears in some discomfort) - HEENT HEENT: Pharynx benign - Neck Neck: Supple, no meningeal sign, No adenopathy - Cardiac Cardiac: RRR, No murmur - Respiratory Respiratory: Clear bilaterally, Other (some chest wall tenderness right parasternal. ) - Abdomen Abdomen: Soft, Non tender, Other (obese) - Derm Derm: Normal color, Warm and dry - Extremities Extremities: No edema, No calf tenderness / cord - Neuro Neuro: Alert and oriented X 3, No motor deficit, Normal speech Results - Vitals Vitals: Vital Signs - 24 hr 07/29/21 07/29/21 07/29/21 00:44 00:45 00:56 Temperature 36.2 C L Heart Rate 59 L 54 L Respiratory 15 Rate Blood Pressure 119/61 119/61 Blood Pressure 119/61 [Left] O2 Saturation 99 96 07/29/21 07/29/21 07/29/21 01:05 01:25 02:09 Temperature Heart Rate 66 57 L 61 Respiratory 20 12 17 Rate Blood Pressure 116/63 116/63 121/82 H Blood Pressure [Left] O2 Saturation 100 99 98 07/29/21 07/29/21 02:41 02:56 Temperature 36.9 C Heart Rate 74 65 Respiratory 13 14 Rate Blood Pressure 106/56 L 117/68 Blood Pressure [Left] O2 Saturation 97 97 Oxygen O2 Source Room air - EKG (time done) 00:48 Rate: Rate (enter#) (56) Rhythm: Sinus bradycardia [place]: Normal Intervals: Normal [place] QRS: Normal Ischemia: Normal ST segments. No: ST elevation c/w ischemia, ST depression - Labs Labs: Laboratory Tests 07/29/21 07/29/21 07/29/21 01:36 01:36 01:36 WBC 7.4 RBC 4.55 Hgb 13.4 Hct 42.2 MCV 92.7 MCH 29.5 MCHC 31.8 L RDW 11.9 L Plt Count 296 MPV 9.3 Neut # (Auto) 4.0 Lymph # (Auto) 2.3 [place] # (Auto) 0.7 Eos # (Auto) 0.4 Baso # (Auto) 0.1 Absolute Nucleated RBC 0.00 Nucleated RBC % 0.0 D-Dimer Sodium 141 Potassium 4.0 Chloride 105 Carbon Dioxide 28 Anion Gap 8.0 BUN 16 Creatinine 0.9 Estimated GFR (MDRD) 72 L Glucose 120 H Calcium 9.5 Total Bilirubin 0.6 AST 16 ALT 21 Alkaline Phosphatase 72 Troponin I High Sens 2.8 Total Protein 6.7 Albumin 4.0 Globulin 2.7 Albumin/Globulin Ratio 1.5 Lipase 29 07/29/21 02:23 WBC RBC Hgb Hct MCV MCH MCHC RDW Plt Count MPV Neut # (Auto) Lymph # (Auto) [place] # (Auto) Eos # (Auto) Baso # (Auto) Absolute Nucleated RBC Nucleated RBC % D-Dimer 205.0 Sodium Potassium Chloride Carbon Dioxide Anion Gap BUN Creatinine Estimated GFR (MDRD) Glucose Calcium Total Bilirubin AST ALT Alkaline Phosphatase Troponin I High Sens Total Protein Albumin Globulin Albumin/Globulin Ratio Lipase - Rads (name of study) chest xray Radiology: Prelim report reviewed (no acute process), See rad report PD MEDICAL DECISION MAKING - ED course Complexity details: reviewed results (no acute significant process by testing. Presume musculoskeletal. ), considered differential, d/w patient Departure - Departure Disposition: 01 Home, Self Care Clinical Impression: Musculoskeletal chest pain Chest pain Qualifiers: Chest pain type: precordial pain Qualified Code(s): R07.2 - Precordial pain Condition: Stable Record reviewed to determine appropriate education?: Yes Instructions: ED Strain Chest Wall Prescriptions: Oxycodone HCl/Acetaminophen [Percocet 5-325 mg Tablet] 1 - 2 each PO Q6H PRN #14 tablet PRN Reason: pain tiZANidine [Zanaflex] 4 mg PO TID PRN #15 tablet PRN Reason: Spasms Comments: Your EKG, chest x-ray, blood tests are normal without any signs of more serious cause for the pain. At this point I presume musculoskeletal pain with some spasms as well. Stretching and range of motion are good though avoid heavy lifting for a couple of days. Use anti-inflammatory such as ibuprofen or naproxen 3 times a day with food for the next several days to a week. Add Tylenol or oxycodone if needed for worse pain. You could add tizanidine muscle relaxant if needed for stiffness or spasms/tightness. Your prescriptions were transmitted to [facility] pharmacy in [place]. I would anticipate improvement over the next few days. Recheck if not better or if other new or symptoms develop as well. I am prescribing a short course of narcotic pain medication for you. These are potentially dangerous and addictive medications that should be used carefully. These medications may constipate you. Take an [id number] stool softener such as docusate twice daily with plenty of water while taking these medic ations. If you go 24 hours without a bowel movement, take [id number] MiraLAX, per package instructions. Do not drink or drive while taking these medications. If you received narcotic or sedating medications while in the emergency department do not drive for 24 hours. Store this medication in a safe, secure place and out of reach of children. It is a violation of federal law to give or sell this medication to another person or to use in a manner other than prescribed. The ED will not refill narcotic prescriptions, including prescriptions lost or stolen. You can dispose of unwanted medications at the [facility]'s office or at several pharmacies such as [email or web address]. Discharge Date/Time: 07/29/21 03:15
[2021-07-29] MEDS ORDERED: MORPHINE 2 MG/ML CARPUJECT IVP STA (01:12)
[2021-07-29] MEDS ORDERED: MAG HYDROX/AL HYDROX/SIMETH 30 ML UDC PO STA (01:13)
[2021-07-29] MEDS ORDERED: KETOROLAC 30 MG/ML VIAL IVP STA (01:14)
[2021-07-29 01:44] LABS: BASOPHILS # (AUTO) 0.1 10^3/uL (0.0-0.1); BASOPHILS % (AUTO) 0.8 %; EOSINOPHILS # (AUTO) 0.4 10^3/uL (0.0-0.7); EOSINOPHILS % (AUTO) 4.7 %; HCT - HEMATOCRIT 42.2 % (37.0-47.0); HGB - HEMOGLOBIN 13.4 g/dL (12.0-16.0); LYMPHOCYTES # (AUTO) 2.3 10^3/uL (1.5-3.5); LYMPHOCYTES % (AUTO) 30.5 %; MEAN CORPUSCULAR HEMOGLOBIN 29.5 pg (27.0-31.0); MEAN CORPUSCULAR HGB CONC 31.8 g/dL (32.0-36.0); MEAN CORPUSCULAR VOLUME 92.7 fL (81.0-99.0); MEAN PLATELET VOLUME 9.3 fL (7.9-10.8); MONOCYTES # (AUTO) 0.7 10^3/uL (0.0-1.0); MONOCYTES % (AUTO) 9.2 %; NEUTROPHILS % (AUTO) 54.5 %; PLT - PLATELET COUNT 296 10^3/uL (130-450); RED BLOOD COUNT 4.55 10^6/uL (4.20-5.40); RED CELL DISTRIBUTION WIDTH 11.9 % (12.0-15.0); WHITE BLOOD COUNT 7.4 x10^3/uL (4.8-10.8)
[2021-07-29 01:54] LABS: ALBUMIN/GLOBULIN RATIO 1.5 (1.0-2.2); BILIRUBIN,TOTAL 0.6 mg/dL (0.2-1.0); CALCIUM 9.5 mg/dL (8.5-10.3); CREATININE 0.9 mg/dL (0.4-1.0); TOTAL PROTEIN 6.7 g/dL (6.7-8.2)
--- NOTE | 2021-07-29 01:57 | XRAY Report ---
PROCEDURE: Chest 1 View X-Ray INDICATIONS: Chest pain TECHNIQUE: One view of the chest was acquired. COMPARISON: 09/21/2017 FINDINGS: Surgical changes and devices: None. Lungs and pleura: No pleural effusions or pneumothorax. Lungs are clear. Mediastinum: Mediastinal contours appear normal. Heart size is normal. Bones and chest wall: No suspicious bony lesions. Overlying soft tissues appear unremarkable. IMPRESSION: No acute cardiopulmonary process demonstrated radiographically. Reviewed by: Delgado Hsieh MD on 07/29/2021 1:55 AM PDT Approved by: Delgado Hsieh MD on 07/29/2021 1:55 AM PDT Station ID: [id number]
[2021-07-29] MEDS ORDERED: HYDROmorphone 1 MG/ML CARPUJECT IVP STA (02:15)
[2021-07-29] MEDS ORDERED: oxyCODONE/ACET 5/325 Prepack 4 PO STA (02:50)
[2021-07-29 02:58] VITALS: BP 117/68
== END 2021-07-29 03:15 | disposition home or self-care (01) ==
LOC: EDUNIT# → ED 00:42
DX: R07.2 Precordial pain (principal)
CPT/HCPCS: 36415; 71045; 80053; 83690; 84484; 85025; 85379; 93005; 96374; 96375; 99284; A9270; J1170

== ENCOUNTER 2021-08-23 17:36 | Outpatient (CLI) | payer OTHER ==
--- NOTE | 2021-08-26 02:21 | XRAY Report ---
PROCEDURE: Ankle 3 View RT INDICATIONS: R ANKLE PX TECHNIQUE: 3 views of the ankle were acquired. Images became available for interpretation on COMPARISON: X-ray ankle 03/31/2021 FINDINGS: Bones: No fractures or dislocations. Ankle mortise is normally aligned. No suspicious bony lesions . Calcaneal spur is present. Soft tissues: No tibiotalar joint effusion. Achilles tendon appears normal. IMPRESSION: No visualized acute fracture or dislocation. However, occult injury cannot be excluded. Recommend short interval imaging follow-up in 7-10 days as clinically indicated for additional evalua tion. Reviewed by: Kelsie Stroud MD on 08/26/2021 12:56 AM PDT Approved by: Kelsie Stroud MD on 08/26/2021 12:56 AM PDT Station ID: [id number]
== END 2021-08-23 23:59 | disposition home or self-care (01) ==
LOC: DI.N 17:36
PROVIDERS: ATTEND Family Medicine
DX: M25.571 Pain in right ankle and joints of right foot (principal)

== ENCOUNTER 2021-11-29 08:00 | Outpatient (CLI) | payer OTHER ==
--- NOTE | 2021-11-29 16:39 | XRAY Report ---
PROCEDURE: Shoulder 3 View LT INDICATIONS: CONTUSION OF L SHOULDER TECHNIQUE: 3 views of the shoulder were acquired. COMPARISON: None. FINDINGS: Bones: No fractures or dislocations. No suspicious bony lesions. Visualized ribs appear intact. Soft tissues: Calcific tendinitis is present. IMPRESSION: No visualized acute fracture or dislocation. However, occult injury cannot be excluded. Recommend short interval imaging follow-up in 7-10 days as clinically indicated for additional evalua tion. Reviewed by: Kelsie Stroud MD on 11/29/2021 4:38 PM PST Approved by: Kelsie Stroud MD on 11/29/2021 4:38 PM PST Station ID: [id number]
== END 2021-11-29 23:59 ==
LOC: DI.N 08:00
PROVIDERS: ATTEND Physician Assistant Medical
DX: S40.012A Contusion of left shoulder, initial encounter (principal)

== ENCOUNTER 2021-12-20 09:07 | Emergency (ER) | payer SELFPAY ==
[2021-12-20 09:28] LABS: BASOPHILS # (AUTO) 0.1 10^3/uL (0.0-0.1); BASOPHILS % (AUTO) 1.3 %; EOSINOPHILS # (AUTO) 0.4 10^3/uL (0.0-0.7); EOSINOPHILS % (AUTO) 6.8 %; HCT - HEMATOCRIT 43.1 % (37.0-47.0); HGB - HEMOGLOBIN 13.8 g/dL (12.0-16.0); LYMPHOCYTES # (AUTO) 2.2 10^3/uL (1.5-3.5); MEAN CORPUSCULAR HEMOGLOBIN 28.9 pg (27.0-31.0); MEAN CORPUSCULAR VOLUME 90.2 fL (81.0-99.0); MEAN PLATELET VOLUME 9.2 fL (7.9-10.8); MONOCYTES # (AUTO) 0.5 10^3/uL (0.0-1.0); MONOCYTES % (AUTO) 8.5 %; NEUTROPHILS # (AUTO) 3.1 10^3/uL (1.5-6.6); NEUTROPHILS % (AUTO) 48.2 %; PLT - PLATELET COUNT 363 10^3/uL (130-450); RED BLOOD COUNT 4.78 10^6/uL (4.20-5.40); WHITE BLOOD COUNT 6.3 x10^3/uL (4.8-10.8)
[2021-12-20] MEDS ORDERED: ONDANSETRON 4 MG/2 ML VIAL IVP STA (09:39)
[2021-12-20] MEDS ORDERED: SODIUM CHLORIDE 0.9% 1,000 ML IV STA (09:39)
[2021-12-20 09:41] LABS: BILIRUBIN,URINE NEGATIVE (NEGATIVE); GLUCOSE, URINE (UA) NEGATIVE (NEGATIVE); KETONES,URINE (UA) NEGATIVE (NEGATIVE); LEUKOCYTE ESTERASE, URINE NEGATIVE (NEGATIVE); NITRITE,URINE NEGATIVE (NEGATIVE); OCCULT BLOOD,URINE LARGE (NEGATIVE); PROTEIN,URINE NEGATIVE (NEGATIVE); UROBILINOGEN,URINE 0.2 (NORMAL) E.U./dL (NORMAL)
[2021-12-20 09:41] LABS: ALBUMIN 3.9 g/dL (3.2-5.5); ALBUMIN/GLOBULIN RATIO 1.3 (1.0-2.2); BILIRUBIN,TOTAL 0.6 mg/dL (0.2-1.0); CALCIUM 8.7 mg/dL (8.5-10.3); CREATININE 0.9 mg/dL (0.4-1.0); POTASSIUM 3.8 mmol/L (3.5-5.0); TOTAL PROTEIN 6.8 g/dL (6.7-8.2)
[2021-12-20 09:44] LABS: HCG UR QUAL NEGATIVE
[2021-12-20] MEDS ORDERED: HYDROmorphone 1 MG/ML CARPUJECT IVP STA ×2 (09:49→11:31)
[2021-12-20] MEDS ORDERED: KETOROLAC 30 MG/ML VIAL IVP STA (09:49)
[2021-12-20 09:56] LABS: CLARITY,URINE HAZY (CLEAR)
[2021-12-20 09:57] LABS: BACTERIA,URINE Many /HPF (None Seen); RBC,URINE TNTC /HPF (0-5); SQUAMOUS EPITHELIAL CELL,UR MANY Squamous (<= Few)
--- NOTE | 2021-12-20 10:06 | ED Physician Documentation ---
History of Present Illness - Stated complaint Stated Complaint: RT SIDE PX, VOMITTING - Chief complaint Chief Complaint: Abd Pain - History obtained from History obtained from: Patient - Additonal information Additional information: Patient comes to the emergency department chief complaint of increasing pain in her right flank starting last night. She states that she has had kidney stones before and this feels a bit different and that it did not come on suddenly. The patient states she also has never had vomiting with her kidney stones before but last night, began vomiting. She states that it did seem as though it hurt more with certain movements, and that this was hard to tell for sure. No dysuria. No significant change in bowel movement. No gross blood in urine. No fevers or chills. Patient states the pain is in her right mid back and right flank. No other complaints at this time. Review of Systems Ten Systems: 10 systems reviewed and negative Constitutional: reports: Reviewed and negative Eyes: reports: Reviewed and negative Ears: reports: Reviewed and negative Nose: reports: Reviewed and negative Throat: reports: Reviewed and negative Cardiac: reports: Reviewed and negative Respiratory: reports: Reviewed and negative GI: reports: Abdominal Pain (Right flank), Nausea, Vomiting : reports: Reviewed and negative Skin: reports: Reviewed and negative Musculoskeletal: reports: Reviewed and negative Neurologic: reports: Reviewed and negative Psychiatric: reports: Reviewed and negative Endocrine: reports: Reviewed and negative Immunocompromised: reports: Reviewed and negative PD PAST MEDICAL HISTORY - Past Medical History Cardiovascular: High cholesterol Respiratory: None Neuro: None Endocrine/Autoimmune: None GI: 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 : Chronic bladder infection, Kidney stones HEENT: None Psych: None Musculoskeletal: Fibromyalgia, Chronic back pain, Other Derm: Eczema - Past Surgical History Past Surgical History: Yes HEENT: Tonsil/Adenoidectomy - Present Medications Home Medications: Ambulatory Orders Medication Instructions Recorded Confirmed Cyclobenzaprine [Flexeril] 10 mg PO Q8H PRN 06/07/13 07/29/21 Gabapentin 600 mg PO TID 06/07/13 07/29/21 Ropinirole HCl [Requip] 0.5 mg PO QPM 12/31/14 07/29/21 Atorvastatin Calcium 40 mg PO DAILY 09/19/17 07/29/21 Topiramate [Topamax] 100 mg PO DAILY 09/19/17 07/29/21 nadoloL [Nadolol] 20 mg PO QPM 09/19/17 07/29/21 Ibuprofen [Motrin] 800 mg PO Q8H PRN #30 tablet 04/12/20 07/29/21 DULoxetine [Cymbalta] 90 mg PO DAILY 07/29/21 07/29/21 Oxycodone HCl/Acetaminophen 1 - 2 each PO Q6H PRN #14 tablet 07/29/21 [Percocet 5-325 mg Tablet] Rizatriptan Benzoate [Rizatriptan] 5 mg PO DAILY 07/29/21 07/29/21 Tizanidine HCl [Zanaflex] 4 mg PO QPM 07/29/21 07/29/21 tiZANidine [Zanaflex] 4 mg PO TID PRN #15 tablet 07/29/21 HYDROcod/ACETAM 5/325 [[place] 5/325] 1 - 2 tablet PO Q6H PRN #14 tablet 12/20/21 Ondansetron Odt [Zofran] 4 mg TL Q6H PRN #10 tablet 12/20/21 Tamsulosin [Flomax] 1 cap PO DAILY #14 cap 12/20/21 - Allergies Allergies/Adverse Reactions: Allergies Allergy/AdvReac Type Severity Reaction Status Date / Time neomycin AdvReac Unknown Rash Verified 12/20/21 09:16 Penicillins AdvReac Unknown Rash Verified 12/20/21 09:16 - Social History Does the pt smoke?: No Smoking Status: Never smoker Does the pt drink ETOH?: Yes Does the pt have substance abuse?: No - Immunizations Immunizations are current?: Yes - POLST Patient has POLST: No PD ED PE NORMAL - Vitals Vital signs reviewed: Yes - General General: Alert and oriented X 3, No acute distress, Well developed/nourished - HEENT HEENT: Atraumatic, PERRL, EOMI, Moist mucous membranes - Neck Neck: Supple, no meningeal sign - Cardiac Cardiac: RRR, No murmur, Strong equal pulses - Respiratory Respiratory: No respiratory distress, Clear bilaterally - Abdomen Abdomen: Soft, Non distended, Other (Tenderness right flank, no rebound or guarding) - Back Back: Other (Right CVA tenderness, moderate) - Derm Derm: Normal color, Warm and dry, No rash - Extremities Extremities: No deformity, No edema, No calf tenderness / cord - Neuro Neuro: Alert and oriented X 3, 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, Normal speech - Psych Psych: Normal mood, Normal affect Results - Vitals Vitals: Vital Signs - 24 hr 12/20/21 09:14 Temperature 36.4 C L Heart Rate 66 Respiratory 22 Rate Blood Pressure 138/82 H O2 Saturation 95 Oxygen O2 Source Room air - Labs Labs: Laboratory Tests 12/20/21 12/20/21 12/20/21 09:24 09:24 09:32 WBC 6.3 RBC 4.78 Hgb 13.8 Hct 43.1 MCV 90.2 MCH 28.9 MCHC 32.0 RDW 12.0 Plt Count 363 MPV 9.2 Neut # (Auto) 3.1 Lymph # (Auto) 2.2 [place] # (Auto) 0.5 Eos # (Auto) 0.4 Baso # (Auto) 0.1 Absolute Nucleated RBC 0.00 Nucleated RBC % 0.0 Sodium 136 Potassium 3.8 Chloride 107 Carbon Dioxide 24 Anion Gap 5.0 L BUN 16 Creatinine 0.9 Estimated GFR (MDRD) 72 L Glucose 109 H Calcium 8.7 Total Bilirubin 0.6 AST 13 ALT 17 Alkaline Phosphatase 64 Total Protein 6.8 Albumin 3.9 Globulin 2.9 Albumin/Globulin Ratio 1.3 Lipase 29 Urine Color YELLOW Urine Clarity HAZY Urine pH 6.0 Ur Specific [place] >=1.030 H Urine Protein NEGATIVE Urine Glucose (UA) NEGATIVE Urine Ketones NEGATIVE Urine Occult Blood LARGE H Urine Nitrite NEGATIVE Urine Bilirubin NEGATIVE Urine Urobilinogen 0.2 (NORMAL) Ur Leukocyte Esterase NEGATIVE Urine RBC TNTC H Urine WBC 4-5 Ur Squamous Epith Cells MANY Squamous H Urine Bacteria Many H Ur Microscopic Review INDICATED Urine Culture Comments NOT INDICATED Urine HCG, Qual NEGATIVE - Rads (name of study) CT abdomen pelvis noncontrast Radiology: Final report received, EMP read indepedently, See rad report (6 mm obstructing right proximal ureteral stone.) PD MEDICAL DECISION MAKING - ED course Complexity details: reviewed results, re-evaluated patient, considered differential, d/w patient ED course: The patient was treated symptomatically with IV fluids, Zofran, Toradol, and Dilaudid which did improve her pain. Vomiting also ceased in the emergency department. The patient was worked up with labs, which were unremarkable, and urinalysis, which showed a significant amount of blood. She was sent for CT scan of the abdomen and pelvis, which did show a proximal ureteral calculus. I have discussed the findings with the patient and that she will need to follow-up with urology. We have discussed symptomatic management at home and the usual indications for return. Departure - Departure Disposition: Home, Self Care Clinical Impression: Kidney stone on right side Condition: Stable Instructions: ED Stone Renal W Colic Follow-Up: Hyun Nielsen MD [Physician No Access] - Prescriptions: Tamsulosin [Flomax] 1 cap PO DAILY #14 cap HYDROcod/ACETAM 5/325 [[place] 5/325] 1 - 2 tablet PO Q6H PRN #14 tablet PRN Reason: Pain Ondansetron Odt [Zofran] 4 mg TL Q6H PRN #10 tablet PRN Reason: Nausea / Vomiting Comments: Your CT scan shows a 6 mm stone in the early part of your right ureter, the tube that goes between the kidney and bladder. This is likely making its way down, which is the cause of your pain, but it is difficult to say exactly how long will take. In a past in a matter of hours, or may take some days. You should follow-up with urology to be sure that things are progressing along as they should. You may also follow-up with your primary care physician as needed. Your prescriptions have been electronically transmitted to [facility] pharmacy, the pharmacy you have on record.
--- NOTE | 2021-12-20 10:57 | CT Report ---
PROCEDURE: Abdomen/Pelvis WO INDICATIONS: R flank pain, kidney stone hx TECHNIQUE: Noncontrast 5 mm thick sections acquired from the diaphragms to the symphysis. 5 mm coronal and sagi ttal reformats were then performed. For radiation dose reduction, the following was used: automated exposure control, adjustment of mA and/or kV according to patient size. COMPARISON: CT abdomen and pelvis 06/02/2020, 04/12/2020. FINDINGS: Image quality: Excellent. ABDOMEN: Lung bases: Lung bases are clear. Heart size is normal. Solid organs: Liver and spleen are normal in size. Gallbladder is unremarkable. Pancreas is normal in contours. No adrenal nodules. Kidneys are normal in size. Mild right kidney hydronephrosis. There is an obstructing calculus at the right UPJ measuring 0.6 cm, (). No hydronephrosis on the left. No hydroureter. Additionally, non obstructing calculus at the inferior pole the right kidney measuring 0.9 cm. Question punctate densit y near the left UVJ. Small phleboliths in the pelvis. Exam is somewhat limited due to body habitus. Peritoneum and bowel: Unenhanced bowel loops demonstrate normal wall thickness and caliber. Normal appendix. No free fluid or air. Nodes and vessels: No retroperitoneal or mesenteric adenopathy by size criteria. Aorta and inferior vena cava are normal in caliber. Miscellaneous: Tiny umbilical hernia. PELVIS: Genitourinary: Bladder is mostly decompressed. No stones. Small left ovarian cyst measuring 2.9 cm. Anteverted uterus. Miscellaneous: No inguinal hernias or adenopathy. Bones: No suspicious bony lesions. Suspect mild scoliosis. No vertebral body compression fractures. IMPRESSION: 1. Mild right hydronephrosis. Obstructing calculus at the right UPJ measuring 0.6 cm. 2. Additional nonobstructing right kidney stone. 3. No hydroureter. Possible punctate calcification near the left UVJ versus phlebolith. 4. Small left ovarian cyst. Reviewed by: Bryan Cao MD on 12/20/2021 10:56 AM [facility] Approved by: Bryan Cao MD on 12/20/2021 10:56 AM [facility] Station ID: [id number]
[2021-12-20] MEDS ORDERED: DROPERIDOL 5 MG/2 ML VIAL IVP STA (11:35)
[2021-12-20 12:09] VITALS: BP 120/63
== END 2021-12-20 12:09 | disposition home or self-care (01) ==
LOC: ED 09:07
DX: N20.2 Calculus of kidney with calculus of ureter (principal)
CPT/HCPCS: 36415; 74176; 80053; 81001; 81025; 83690; 85025; 96361; 96374; 96375; 99282; 99284; J1170; 81003; 87086

== ENCOUNTER 2022-07-10 15:38 | Emergency (ER) | payer SELFPAY ==
--- NOTE | 2022-07-10 16:29 | XRAY Report ---
PROCEDURE: Shoulder 3 View LT INDICATIONS: L shoulder pain, no known injury TECHNIQUE: 3 views of the shoulder were acquired. COMPARISON: None. FINDINGS: Bones: No fractures or dislocations. No suspicious bony lesions. Visualized ribs appear intact. Soft tissues: No suspicious soft tissue calcifications. IMPRESSION: Unremarkable left shoulder radiographs Reviewed by: David Krause MD on 07/10/2022 3:28 PM [facility] Approved by: David Krause MD on 07/10/2022 3:28 PM [facility] Station ID: [id number]
--- NOTE | 2022-07-10 17:01 | ED Physician Documentation ---
History of Present Illness - Stated complaint Stated Complaint: SHOULDER PX - Chief complaint Chief Complaint: Ext Problem - History obtained from History obtained from: Patient - Additonal information Additional information: The patient comes to the emergency department chief complaint of left shoulder and neck pain that started last night. She states she was laying in bed and vaguely remembers in her sleep turning over and feeling a pop somewhere in her left shoulder vicinity. Patient states that this morning when she woke up, she had pain in her shoulder traveling up into her neck along the trapezius distribution. She also has had some limited range of motion with internal rotation, which causes pain in her anterior left shoulder. The patient states that she has limited range of motion anyway, Secondary to calcific tendinitis that she has pre-existing in her left shoulder. The patient states that she normally can abduct and forward flex only to about 90 degrees. She states that with regard to internal rotation, she can usually grasp and fasten her bra strap. The patient denies any other injuries. She has a little numbness and tingling in her left fourth and fifth fingertips. No other complaints at this time. Review of Systems Ten Systems: 10 systems reviewed and negative Constitutional: reports: Reviewed and negative Eyes: reports: Reviewed and negative Ears: reports: Reviewed and negative Nose: reports: Reviewed and negative Throat: reports: Reviewed and negative Cardiac: reports: Reviewed and negative Respiratory: reports: Reviewed and negative GI: reports: Reviewed and negative : reports: Reviewed and negative Skin: reports: Reviewed and negative Musculoskeletal: reports: Neck pain, Extremity pain, Joint pain Neurologic: reports: Reviewed and negative Psychiatric: reports: Reviewed and negative Endocrine: reports: Reviewed and negative Immunocompromised: reports: Reviewed and negative PD PAST MEDICAL HISTORY - Past Medical History Cardiovascular: High cholesterol Respiratory: None Neuro: None Endocrine/Autoimmune: None GI: None 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: None : Chronic bladder infection, Kidney stones HEENT: None Psych: None Musculoskeletal: Fibromyalgia, Chronic back pain, Other Derm: Eczema - Past Surgical History Past Surgical History: Yes HEENT: Tonsil/Adenoidectomy - Present Medications Home Medications: Ambulatory Orders Medication Instructions Recorded Confirmed Cyclobenzaprine [Flexeril] 10 mg PO Q8H PRN 06/07/13 07/29/21 Gabapentin 600 mg PO TID 06/07/13 07/29/21 Ropinirole HCl [Requip] 0.5 mg PO QPM 03/11/15 10/07/21 Atorvastatin Calcium 40 mg PO DAILY 09/19/17 07/29/21 Topiramate [Topamax] 100 mg PO DAILY 09/19/17 07/29/21 nadoloL [Nadolol] 20 mg PO QPM 09/19/17 07/29/21 Ibuprofen [Motrin] 800 mg PO Q8H PRN #30 tablet 04/12/20 07/29/21 DULoxetine [Cymbalta] 90 mg PO DAILY 07/29/21 07/29/21 Oxycodone HCl/Acetaminophen 1 - 2 each PO Q6H PRN #14 tablet 07/29/21 [Percocet 5-325 mg Tablet] Rizatriptan Benzoate [Rizatriptan] 5 mg PO DAILY 07/29/21 07/29/21 Tizanidine HCl [Zanaflex] 4 mg PO QPM 07/29/21 07/29/21 tiZANidine [Zanaflex] 4 mg PO TID PRN #15 tablet 07/29/21 HYDROcod/ACETAM 5/325 [[place] 5/325] 1 - 2 tablet PO Q6H PRN #14 tablet 12/20/21 Ondansetron Odt [Zofran] 4 mg TL Q6H PRN #10 tablet 12/20/21 Tamsulosin [Flomax] 1 cap PO DAILY #14 cap 12/20/21 HYDROcod/ACETAM 5/325 [[place] 5/325] 1 - 2 tablet PO Q6H PRN #14 tablet 07/10/22 predniSONE [Deltasone] 60 mg PO DAILY 5 Days #15 tablet 07/10/22 - Allergies Allergies/Adverse Reactions: Allergies Allergy/AdvReac Type Severity Reaction Status Date / Time neomycin AdvReac Unknown Rash Verified 07/10/22 15:48 Penicillins AdvReac Unknown Rash Verified 07/10/22 15:48 - Social History Does the pt smoke?: No Smoking Status: Never smoker Does the pt drink ETOH?: Yes Does the pt have substance abuse?: No - Immunizations Immunizations are current?: Yes - POLST Patient has POLST: No PD ED PE NORMAL - Vitals Vital signs reviewed: Yes - General General: Alert and oriented X 3, No acute distress, Well developed/nourished - HEENT HEENT: Atraumatic, PERRL, EOMI, Moist mucous membranes - Neck Neck: Supple, no meningeal sign, No bony TTP, Other (Mild tenderness to palpation over left trapezius distribution.) - Cardiac Cardiac: Strong equal pulses - Respiratory Respiratory: No respiratory distress - Derm Derm: Normal color, Warm and dry, No rash - Extremities Extremities: No deformity, No edema, Other (Decreased range of motion left shoulderWith slightly less than 90 degrees of flexion and abduction, and inte rnal rotation of left shoulder only to the point of bringing hand to hip.) - Neuro Neuro: Alert and oriented X 3, 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, No motor deficit, No sensory d eficit, Normal speech - Psych Psych: Normal mood, Normal affect Results - Vitals Vitals: Vital Signs - 24 hr 07/10/22 07/10/22 15:44 17:10 Temperature 36.3 C L Heart Rate 64 70 Respiratory 18 17 Rate Blood Pressure 149/68 H 135/60 H O2 Saturation 100 99 Oxygen O2 Source Room air - Rads (name of study) Left shoulder x-ray series Radiology: Final report received, EMP read indepedently, See rad report (Negative) PD MEDICAL DECISION MAKING - ED course Complexity details: reviewed results, re-evaluated patient, considered differential, d/w patient ED course: X-ray was negative. The patient was prescribed symptomatic treatment. We have discussed home management of the symptoms as well as the usual indications for follow-up and return. Departure - Departure Disposition: 01 Home, Self Care Clinical Impression: Left shoulder strain Qualifiers: Encounter type: initial encounter Qualified Code(s): S46.912A - Strain of unspecified muscle, fascia and tendon at shoulder and upper arm level, left arm, initial encounter Condition: Stable Instructions: ED Sprain Shoulder Prescriptions: predniSONE [Deltasone] 60 mg PO DAILY 5 Days #15 tablet HYDROcod/ACETAM 5/325 [[place] 5/325] 1 - 2 tablet PO Q6H PRN #14 tablet PRN Reason: Pain Comments: Your prescriptions have been electronically transmitted to pharmacy in [place], at your request. Please follow-up with your primary doctor if you do not notice any improvement in the next couple of weeks. Otherwise, you may use ice, heat, stretching, and range of motion exercises to help keep the shoulder moving again. Massage is also helpful sometimes. Discharge Date/Time: 07/10/22 17:12
[2022-07-10 17:11] VITALS: BP 135/60
== END 2022-07-10 17:12 | disposition home or self-care (01) ==
LOC: ED 15:38
DX: S46.912A Strain of unspecified muscle, fascia and tendon at shoulder and upper arm level, left arm, initial encounter (principal); X58.XXXA Exposure to other specified factors, initial encounter
CPT/HCPCS: 99282; 99283

== ENCOUNTER 2022-10-25 10:30 | Emergency (ER) | payer BC ==
[2022-10-25 10:59] LABS: BILIRUBIN,URINE NEGATIVE (NEGATIVE); GLUCOSE, URINE (UA) NEGATIVE (NEGATIVE); KETONES,URINE (UA) NEGATIVE (NEGATIVE); LEUKOCYTE ESTERASE, URINE TRACE (NEGATIVE); NITRITE,URINE POSITIVE (NEGATIVE); OCCULT BLOOD,URINE MODERATE (NEGATIVE); PROTEIN,URINE TRACE mg/dL (NEGATIVE); UROBILINOGEN,URINE 1 (NORMAL) E.U./dL (NORMAL)
[2022-10-25 11:08] LABS: HCG UR QUAL NEGATIVE
[2022-10-25 11:09] LABS: CLARITY,URINE CLOUDY (CLEAR)
[2022-10-25 11:11] LABS: AMORPHOUS SEDIMENT,UR Marked /LPF; BACTERIA,URINE Few /HPF (None Seen); RBC,URINE 0-5 /HPF (0-5); SQUAMOUS EPITHELIAL CELL,UR MOD Squamous (<= Few); WBC,URINE 0-3 /HPF (0-5)
[2022-10-25 11:15] LABS: BASOPHILS % (AUTO) 0.5 %; EOSINOPHILS # (AUTO) 0.2 10^3/uL (0.0-0.7); EOSINOPHILS % (AUTO) 2.6 %; HCT - HEMATOCRIT 42.6 % (37.0-47.0); HGB - HEMOGLOBIN 13.3 g/dL (12.0-16.0); LYMPHOCYTES # (AUTO) 1.5 10^3/uL (1.5-3.5); LYMPHOCYTES % (AUTO) 19.5 %; MEAN CORPUSCULAR HEMOGLOBIN 27.6 pg (27.0-31.0); MEAN CORPUSCULAR HGB CONC 31.2 g/dL (32.0-36.0); MEAN CORPUSCULAR VOLUME 88.4 fL (81.0-99.0); MEAN PLATELET VOLUME 9.2 fL (7.9-10.8); MONOCYTES # (AUTO) 0.5 10^3/uL (0.0-1.0); NEUTROPHILS # (AUTO) 5.2 10^3/uL (1.5-6.6); NEUTROPHILS % (AUTO) 70.1 %; PLT - PLATELET COUNT 350 10^3/uL (130-450); RED BLOOD COUNT 4.82 10^6/uL (4.20-5.40); RED CELL DISTRIBUTION WIDTH 12.5 % (12.0-15.0); WHITE BLOOD COUNT 7.4 x10^3/uL (4.8-10.8)
[2022-10-25 11:29] LABS: ALBUMIN 3.9 g/dL (3.2-5.5); ALBUMIN/GLOBULIN RATIO 1.2 (1.0-2.2); BILIRUBIN,TOTAL 0.7 mg/dL (0.2-1.0); CREATININE 0.9 mg/dL (0.4-1.0); POTASSIUM 3.7 mmol/L (3.5-5.0); TOTAL PROTEIN 7.1 g/dL (6.7-8.2)
[2022-10-25] MEDS ORDERED: SODIUM CHLORIDE 0.9% 1,000 ML IV STA (12:16)
[2022-10-25] MEDS ORDERED: ONDANSETRON 4 MG/2 ML VIAL IVP STA (12:16)
[2022-10-25] MEDS ORDERED: KETOROLAC 30 MG/ML VIAL IVP STA (12:16)
--- NOTE | 2022-10-25 13:59 | CT Report ---
PROCEDURE: ABDOMEN/PELVIS WO INDICATIONS: R flank pain, h/o renal stones TECHNIQUE: Noncontrast 5 mm thick sections acquired from the diaphragms to the symphysis. 5 mm coronal and sagi ttal reformats were then performed. For radiation dose reduction, the following was used: automated exposure control, adjustment of mA and/or kV according to patient size. COMPARISON: 12/20/2021 FINDINGS: Image quality: Somewhat limited by patient body habitus. Lower chest: Possible small hiatal hernia. Solid organs: Liver is unremarkable. Gallbladder is unremarkable. No pathologic dilation of biliary t ree or pancreatic duct. No spinal megaly. No adrenal nodules. Edematous, enlarged right kidney. 9 x 6 x 11 mm calcified stone in the right renal pelvis with modera te upstream hydronephrosis. There is also a punctate right interpolar region nonobstructing stone. Vessels and lymph nodes: No abdominal aortic aneurysm or pathologic adenopathy by size criteria. Bowel and peritoneum: No bowel obstruction. No pathologic ascites. Body wall: Small fat-containing umbilical hernia. Pelvis: Bladder is underdistended which limits evaluation. Unremarkable appearance of the reproductiv e organs on limited CT evaluation. Bones: No acute or suspicious osseous abnormality. Mild degenerative changes in the lower lumbar spin e. IMPRESSION: Obstructing calcified right renal pelvis stone with moderate upstream hydronephrosis and edematous ri ght kidney. The stone measures up to 11 mm. Other findings as above. Reviewed by: Jonah Mera MD on 10/25/2022 1:58 PM PST Approved by: Jonah Mera MD on 10/25/2022 1:58 PM PST Station ID: [id number]
[2022-10-25] MEDS ORDERED: PROMETHAZINE INJ 25 MG in SODIUM CHLORIDE 0.9% 50 ML IV STA (14:04)
[2022-10-25] MEDS ORDERED: HYDROmorphone 1 MG/ML CARPUJECT IVP STA (15:07)
[2022-10-25] MEDS ORDERED: cefTRIAXone 1 GM VIAL IVP STA (15:08)
--- NOTE | 2022-10-25 15:10 | ED Physician Documentation ---
History of Present Illness - Stated complaint Stated Complaint: R FLANK PX, VOMITTING - Chief complaint Chief Complaint: Abd Pain - History obtained from History obtained from: Patient - History of Present Illness Timing: How many days ago (4-5) Pain level max: 9 Pain level now: 9 - Additonal information Additional information: Patient is a 37-year-old female who presents to the emergency department with right flank pain. This been ongoing for the past 4 to 5 days. She states that it feels similar to prior kidney stones. Nothing makes it better or worse. She states she had an 8 mm kidney stone on the right side that is being followed by Dr. Ruiz, urology at [facility],. But she has not been seen for about a year. Started having increased pain again. She states that no fevers. No chills. Nothing makes it better or worse. 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 : Chronic bladder infection, Kidney stones HEENT: None Psych: None Musculoskeletal: Fibromyalgia, Chronic back pain, Other Derm: Eczema - Past Surgical History Past Surgical History: Yes HEENT: Tonsil/Adenoidectomy - Present Medications Home Medications: Ambulatory Orders Medication Instructions Recorded Confirmed Cyclobenzaprine [Flexeril] 10 mg PO Q8H PRN 06/07/13 07/29/21 Gabapentin 600 mg PO TID 06/07/13 07/29/21 Ropinirole HCl [Requip] 0.5 mg PO QPM 12/31/14 07/29/21 Atorvastatin Calcium 40 mg PO DAILY 09/19/17 07/29/21 Topiramate [Topamax] 100 mg PO DAILY 09/19/17 07/29/21 nadoloL [Nadolol] 20 mg PO QPM 09/19/17 07/29/21 Ibuprofen [Motrin] 800 mg PO Q8H PRN #30 tablet 04/12/20 07/29/21 DULoxetine [Cymbalta] 90 mg PO DAILY 07/29/21 07/29/21 Oxycodone HCl/Acetaminophen 1 - 2 each PO Q6H PRN #14 tablet 07/29/21 [Percocet 5-325 mg Tablet] Rizatriptan Benzoate [Rizatriptan] 5 mg PO DAILY 07/29/21 07/29/21 Tizanidine HCl [Zanaflex] 4 mg PO QPM 07/29/21 07/29/21 tiZANidine [Zanaflex] 4 mg PO TID PRN #15 tablet 07/29/21 HYDROcod/ACETAM 5/325 [[place] 5/325] 1 - 2 tablet PO Q6H PRN #14 tablet 12/20/21 Ondansetron Odt [Zofran] 4 mg TL Q6H PRN #10 tablet 12/20/21 Tamsulosin [Flomax] 1 cap PO DAILY #14 cap 12/20/21 HYDROcod/ACETAM 5/325 [[place] 5/325] 1 - 2 tablet PO Q6H PRN #14 tablet 07/10/22 predniSONE [Deltasone] 60 mg PO DAILY 5 Days #15 tablet 07/10/22 Cefpodoxime Proxetil [Vantin] 100 mg PO Q12H #14 tablet 10/25/22 Ketorolac [Toradol] 10 mg PO Q6H PRN #20 tablet 10/25/22 Ondansetron Odt [Zofran] 4 mg TL Q6H PRN #10 tablet 10/25/22 Oxycodone HCl/Acetaminophen 1 - 2 each PO Q6H PRN #14 tablet 10/25/22 [Percocet 5-325 mg Tablet] MDD 6 tabs Promethazine [Phenergan] 25 mg PO Q6H PRN #10 tab 10/25/22 - Allergies Allergies/Adverse Reactions: Allergies Allergy/AdvReac Type Severity Reaction Status Date / Time neomycin AdvReac Unknown Rash Verified 10/25/22 10:42 Penicillins AdvReac Unknown Rash Verified 10/25/22 10:42 - Social History Does the pt smoke?: No Smoking Status: Never smoker Does the pt drink ETOH?: Yes Does the pt have substance abuse?: No - Immunizations Immunizations are current?: Yes - POLST Patient has POLST: No PD ED PE NORMAL - Vitals Vital signs reviewed: Yes - General General: Alert and oriented X 3, No acute distress - HEENT HEENT: Moist mucous membranes - Neck Neck: Supple, no meningeal sign - Cardiac Cardiac: RRR, Strong equal pulses - Respiratory Respiratory: No respiratory distress, Clear bilaterally - Abdomen Abdomen: Soft, Non tender, Non distended - Back Back: No CVA TTP, No spinal TTP - Derm Derm: Warm and dry - Extremities Extremities: No edema - Neuro Neuro: Alert and oriented X 3 - Psych Psych: Normal mood, Normal affect Results - Vitals Vitals: Vital Signs - 24 hr 10/25/22 10/25/22 10/25/22 10:38 12:41 14:00 Temperature 36.7 C Heart Rate 76 78 75 Respiratory 18 19 18 Rate Blood Pressure 153/111 H 145/76 H 148/100 H O2 Saturation 98 99 99 10/25/22 15:41 Temperature Heart Rate 70 Respiratory 16 Rate Blood Pressure 148/82 H O2 Saturation 96 Oxygen O2 Source Room air - Labs Labs: Laboratory Tests 10/25/22 10/25/22 10/25/22 10:54 11:11 11:11 WBC 7.4 RBC 4.82 Hgb 13.3 Hct 42.6 MCV 88.4 MCH 27.6 MCHC 31.2 L RDW 12.5 Plt Count 350 MPV 9.2 Neut # (Auto) 5.2 Lymph # (Auto) 1.5 [place] # (Auto) 0.5 Eos # (Auto) 0.2 Baso # (Auto) 0.0 Absolute Nucleated RBC 0.00 Nucleated RBC % 0.0 Sodium 138 Potassium 3.7 Chloride 104 Carbon Dioxide 25 Anion Gap 9.0 BUN 12 Creatinine 0.9 Estimated GFR (MDRD) 71 L Glucose 118 H Calcium 9.0 Total Bilirubin 0.7 AST 19 ALT 21 Alkaline Phosphatase 68 Total Protein 7.1 Albumin 3.9 Globulin 3.2 Albumin/Globulin Ratio 1.2 Lipase 25 Urine Color YELLOW Urine Clarity CLOUDY Urine pH 8.0 H Ur Specific [place] 1.015 Urine Protein TRACE Urine Glucose (UA) NEGATIVE Urine Ketones NEGATIVE Urine Occult Blood MODERATE H Urine Nitrite POSITIVE H Urine Bilirubin NEGATIVE Urine Urobilinogen 1 (NORMAL) Ur Leukocyte Esterase TRACE H Urine RBC 0-5 Urine WBC 0-3 Ur Squamous Epith Cells MOD Squamous H Amorphous Sediment Marked Urine Bacteria Few Ur Microscopic Review INDICATED Urine Culture Comments NOT INDICATED Urine HCG, Qual NEGATIVE - Rads (name of study) CT [email or web address] Radiology: Final report received, See rad report PD Medical Decision Making - ED course Complexity details: reviewed results, re-evaluated patient, considered differential, d/w patient ED course: Patient is a 37-year-old female with right flank pain. She has a 11 mm right UPJ stone with hydronephrosis. She does not have any urinary symptoms, but concern for potential infection. No leukocytosis. No fever. No chills. Will cover with antibiotics. Discussed the case with Dr. Palm, urology at [facility]. He recommends follow-up in the office closely with Dr. Ruiz. Pain well controlled here. No vomiting. Tolerating p.o. without difficulty. Patient counseled regarding signs and symptoms for which I believe and urgent re- evaluation would be necessary. Patient with good understanding of and agreement to plan and is comfortable going home at this time This document was made in part using voice recognition software. While efforts are made to proofread this document, sound alike and grammatical errors may occu r. Departure - Departure Disposition: 01 Home, Self Care Clinical Impression: Renal calculus, right Condition: Good Instructions: ED Stone Renal W Colic Follow-Up: SHANNA ROMAN [Primary Care Provider] - Tonya Ruiz MD [Physician No Access] - Tonya Ruzi MD [Provider Admit Priv/Credential] - Prescriptions: Oxycodone HCl/Acetaminophen [Percocet 5-325 mg Tablet] 1 - 2 each PO Q6H PRN #14 tablet MDD 6 tabs PRN Reason: pain Promethazine [Phenergan] 25 mg PO Q6H PRN #10 tab PRN Reason: Nausea / Vomiting Ketorolac [Toradol] 10 mg PO Q6H PRN #20 tablet PRN Reason: back pain Cefpodoxime Proxetil [Vantin] 100 mg PO Q12H #14 tablet Ondansetron Odt [Zofran] 4 mg TL Q6H PRN #10 tablet PRN Reason: Nausea / Vomiting Comments: Your prescriptions were sent to in [place]. I spoke with Dr. Palm from [facility] urology today. Please call their office for an urgent appointment. If you develop fevers, uncontrollable pain, uncontrollable vomiting or other worsening symptoms, please go directly to [facility] for urology services. I am prescribing a short course of narcotic pain medication for you. These are potentially dangerous and addictive medications that should be used carefully. These medications may constipate you. Take an [id number] stool softener (docusate) twice daily with plenty of water while taking these medications. If you go 24 hours without a bowel movement, take [id number] miralax, per package instructions. Do not drink or drive while taking these medications. If you received narcotic or sedating medications while in the emergency department, do not drive for 24 hours. Store this medication in a safe, secure place and out of reach of children. It is a violation of federal law to give or sell this medication to another person or to use in a manner other than prescribed. The ED will not refill narcotic prescriptions, including prescriptions lost or stolen. To dispose of unwanted medications: 1. [facility] at [address] [facility] [facility] in [place] has a medication drop box. They accept prescription medications (in pill form) Monday through Monday 9:00 a.m. to 5:00 p.m. 2. The [facility] [employer] accepts prescription medications (in pill form only) for disposal year round. Call for more information. 3. Contact the [facility] for the next [facility] sponsored prescription drug collection event. , [phone], or [phone]; CT SCAN FINDINGS: Lower chest: Possible small hiatal hernia. Solid organs: Liver is unremarkable. Gallbladder is unremarkable. No pathologic dilation of biliary tree or pancreatic duct. No spinal megaly. No adrenal nodules. Edematous, enlarged right kidney. 9 x 6 x 11 mm calcified stone in the right renal pelvis with moderate upstream hydronephrosis. There is also a punctate right interpolar region nonobstructing stone. Vessels and lymph nodes: No abdominal aortic aneurysm or pathologic adenopathy by size criteria. Bowel and peritoneum: No bowel obstruction. No pathologic ascites. Body wall: Small fat-containing umbilical hernia. Pelvis: Bladder is underdistended which limits evaluation. Unremarkable appearance of the reproductive organs on limited CT evaluation. Bones: No acute or suspicious osseous abnormality. Mild degenerative changes in the lower lumbar spine. IMPRESSION: Obstructing calcified right renal pelvis stone with moderate upstream hydronephrosis and edematous right kidney. The stone measures up to 11 mm. Other findings as above. Discharge Date/Time: 10/25/22 15:59
[2022-10-25 15:42] VITALS: BP 148/82
== END 2022-10-25 15:59 | disposition home or self-care (01) ==
LOC: ED 10:30
DX: N13.2 Hydronephrosis with renal and ureteral calculous obstruction (principal)
CPT/HCPCS: 36415; 74176; 80053; 81001; 81025; 83690; 85025; 96365; 96375; 99284; 99285; J1170; J7040; 81003; 87086

== ENCOUNTER 2023-01-29 21:15 | Outpatient (CLI) | payer BC | END 2023-01-29 21:16 | disposition short-term general hospital (02) | LOC: EMS 21:15 | DX: S99.912A Unspecified injury of left ankle, initial encounter (principal); W01.0XXA Fall on same level from slipping, tripping and stumbling without subsequent striking against object, initial encounter; Y93.51 Activity, roller skating (inline) and skateboarding; Y92.331 Roller skating rink as the place of occurrence of the external cause | CPT/HCPCS: A0425; A0427 ==